=== PATIENT | female | born 1985 | race Caucasian/White ===

== ENCOUNTER 2019-12-04 10:49 | Emergency (ER) | payer BC, MEDICAID ==
[~2019-12-04] VITALS: Ht 162 cm; Wt 55.0 kg
[~2019-12-04 10:49] MED LIST: ACET-168 PO; ACET1TAB43 PO; ACET325T38 PO; B12/1TAB3 PO; B6/F1TAB PO; BENZ56AE TP; CEFD300C PO; CEPH500C PO; CODE-54 PO; DOCU100C37 PO; Docusate Sodium PO; FAMO10TA71 PO; FAMO20TA5 PO; FISH1200 PO; FISH400C PO; FOLI0.4T2 PO; FOLI0.8T PO; FOLI20CA PO; FRS325T PO; GLYB2.5T4 PO; GLYB5TAB6 PO; IBUP-1773 PO; Ibuprofen PO; METR500T PO; NITR-65 PO; OMEG92TA PO; ONDA4TAB11 PO; ONDA8TAB13 PO; ONDA8TAB6 PO; POTA99TA15 PO; PREN1COM PO; PREN1TAB19 PO; primrose oil
--- OUTSIDE RECORDS SUMMARY | 2019-12-04 10:55 | XMS REPORT ---
Author Author First Class EV Conversions perpetual inventory clerk [employer] [facility] [employer] [facility] Address [address] [address] Care Team Providers Care Wet Pour Mixer Name Role Phone NO, LOCAL PHYSICIAN Unavailable Unavailable SABINO DAY S Unavailable GERTRUDE SABINO S Unavailable ABIGAIL ART Unavailable PELAEZ, ADAM Unavailable PELAEZ, ADAM Unavailable PELAEZ, ADAM Unavailable YRIS DEAN Unavailable ADILENE, EARNEST Unavailable ADILENE, EARNEST Unavailable ADILENE, EARNEST D Unavailable Unavailable ELSY, OJ Unavailable ELSY, OJ Unavailable ELSY, OJ Unavailable NOAH Cooney Unavailable Unavailable Unavailable Unavailable Unavailable Allergies The data below is from unstructured sources Allergen Type Severity Reaction Status Last Updated No Known Drug Allergies Active 01/22/14 No Information Medications The data below is from unstructured sources No Known Medications No Known Medications No Known Medications Unknown Medications Unknown Medications No Known Medications No Known Medications No Known Medications No Known Medications No Known Medications No Known Medications No Known Medications No Known Medications No Known Medications No Known Medications No Known Medications No Known Medications No Known Medications No Known Medications No Known Medications No Known Medications No Known Medications Problems Problem Normalized Date Last Normalized Normalized Provider Fa cility Classification Problem(s) Recorded Problem Problem Sta tus Duration Other Body mass Chronic Active [facility] nutritional; index (BMI) 18967 [facility] endocrine; and 45.0-49.9, of [place] metabolic adult [place] ([address]) disorders (12 Translations: sources.) [ - BMI 45.0-49.9, adult Z68.42] Mood disorders Dysthymic Chronic Active EARNEST HEAD Commu nity (12 sources.) disorder 98482 [facility] Translations: of [facility] [ - Dysthymia [place] (00817) F34.1, Dysthymia, Dysthymia] Other Elevated Episodic Active EARNEST [facility] circulatory blood-pressure [id number] [place], [place] [address]e r disease (6 reading, of [place] sources.) without [place] ([address]512) diagnosis of hypertension Translations: [ - Elevated blood pressure reading R03.0] Unclassified Encounter for Episodic Active OJ ELSY C ommunity (4 sources.) screening for [facility] depression of [facility] Translations: [place] ([address]04) [ - Positive depression screening Z13.31] Unclassified Encounter for Episodic Active EARNEST ADILENE Com munity (11 sources.) screening for [facility] lipoid of [facility] disorders [place] ([address]287) Translations: [ - Screening for hyperlipidemia Z13.220] Other Hypoglycemia Chronic Active OJ ELSY Commu nity endocrine Translations: 41571 [facility] disorders (4 [ of [place] sources.) Hypoglycemia] [place] ([address]51) Other Hypoglycemia, Chronic Active OJ ELSY Comm unity endocrine unspecified [facility] disorders (4 Translations: of [place] sources.) [ - [place] (16686) Hypoglycemia E16.2] Other Morbid Chronic Active OJ ELSY Community nutritional; (severe) [facility] endocrine; and obesity due to of [facility] metabolic excess [place] (36837) disorders (8 calories sources.) Translations: [ - Morbid obesity E66.01] Nonspecific Other chest Episodic Active OJ ELSY Comm unity chest pain (4 pain 16407 Health Center sources.) Translations: of [facility] [ - Chest wall [place] (12032) pain R07.89] Malaise and Other fatigue Episodic Active OJ ELSY Co mmunity fatigue (8 Translations: 68259 Health Center sources.) [ - Fatigue, of [place] unspecified [place] ([address]218) type R53.83] Other Pain in right Episodic Active OJ ELSY Comm unity connective foot 07470 Health Center tissue disease Translations: of [facility] (4 sources.) [ - Right foot [place] (41678) pain M79.671] Inflammation; Unspecified Episodic Active OJ CHIN [facility] infection of acute 71198 [facility] eye (except conjunctivitis of [facility] that caused by , right eye [place] (79049) tuberculosis Translations: or sexually [ - Acute transmitteddis bacterial ease) (4 conjunctivitis sources.) of right eye H10.31] Procedures Procedure Normalized Procedure Procedure Result Performer Facility Date 04-27-2018 Assay of thyroid no information no name [facility] (02928) 04-27-2018 Blood count complete no information no name [facility] auto&auto difrntl wbc [facility] (43505) 10-21-2013 Collection venous no information no name [facility] blood venipuncture [facility] (67971) 04-27-2018 Comprehensive no information no name [facility] metabolic panel [facility] (93480) 10-21-2013 Gonadotropin chorionic no information no name [facility] quantitative [facility] (40875) 04-27-2018 Lipid panel no information no name [facility]alth [facility] (92137) 10-24-2013 Us uterus 14 no information [facility] 06[facility]29 [facility] (78791) Immunizations Normalized Immunization Date Notes Care Provider Facili ty Immunization ROCEPHIN 1 GM (IM) 11-26-2017 no information no name [facility] (66307) Results The data below is from unstructured sourcesNo known relevant diagnostic tests, laboratory data and/or discharge summary.No known relevant diagnostic tests, laboratory data and/or discharge summary.No known relevant diagnostic tests, laboratory data and/or discharge summary. No Results No Results No Results No Results No Results No Results No Results No Results No Results No Results No Results No Results No Results No Results No Results No Results No Results No Results Vital Signs Vital Sign Value Interpretation Reference Date Time Care Prov ider Facility (Normalized) (Normalized) Range BMI (Body Mass 45.83 kg/m2 (no code) 15 - 25 kg/m2 04-23-2018 [facility] [place]) 15:00-[address] [place] [address] (00966) BMI (Body Mass 43.08 kg/m2 (no code) 15 - 25 kg/m2 03-05-2018 LI NDA DEAN Community Index) 14:400400 64124 [facility] (10356) Body height 162.56 cm (no code) cm 10-18-2013 [facility] 15:410400 60335 [facility] (02077) Body 98 [degF] (no code) 97.8 - 99.0 04-23-2018 A[facility] Temperature [degF] 15:000400 [address] [place] [address] (35541) Body 97.9 [degF] (no code) 97.8 - 99.0 03-05-2018 YRIS DEAN [facility] Temperature [degF] 14:400400 [address] [place] [address] (80920) Body 99.3 [degF] (no code) 97.8 - 99.0 10-18-2013 OJ [facility] temperature [degF] 15:410400 [address] [place] [address] (65722) Body weight 109.77 kg (no code) kg 10-18-2013 [facility] 15:410400 [address] [place] [address] (97157) Height 162.56 cm (no code) cm 04-23-2018 [facility] mmunity 15:[address] [place] [address] (32057) Height 162.56 cm (no code) cm 03-05-2018 YRIS DEAN Com munity 14:400400 40989 [facility] (76210) Weight 121.11 kg (no code) kg 04-23-2018 EARNEST [employer] [facility]munity 15:000400 [address] [place] [address] (64541) Weight 113.85 kg (no code) kg 03-05-2018 YRIS DEAN Com munity 14:400400 [address] [place] [address] (48478) Interventions No Information Plan of Treatment Normalized Care Care Detail Care Activity Date Care Provider F acility Activity no information no information no information EARNESTDiarize 99613 [facility] (89471) Goals No Information Social History No Information Functional Status The data below is from unstructured sources Query Response Date Trell rded Patient Orientation Person Place Time Situation December 06, 2015 11:28am Mental Status No Information Encounters Encounter Normalized Encounter Encounter Diagnosis Care Provi dion Organization Date Type 04-23-2018 (ESTAB) Establish Care Dizziness and EARNEST ADILENE (n o phone) [facility] [place] - giddiness (no phone) 04-23-2018 - 04-23-2018 07-19-2019 [facility] Pain in right foot PETER GILR EATH (no [facility] phone) CARE (no phone) 06-03-2019 [facility] Unspecified acute PETER GILRE ATH (no [facility] conjunctivitis, right phone) CARE (no phone) eye 04-20-2019 [facility] Hypoglycemia, SHAR BERNOT (no [facility] unspecified phone) CARE (no phone) 03-12-2019 [facility] Other chest pain CHANDRAKANT RAMOS (no [facility] phone) CARE (no phone) 10-03-2018 [facility] Headache PETER DALEYATH (n o [facility] phone) CARE (no phone) 05-11-2019 [facility] [place] Other fatigue EARNEST ADILENE (no phone) [facility] [place] (no phone) 10-04-2018 [facility] [place] Morbid (severe) NAOMI OCHOA (no [facility] [place] obesity due to excess phone) (no phone) calories 05-23-2019 Consultation for Other fatigue EARNEST ADILENE (no phon e) [facility] [place] laboratory medicine (no phone) 04-27-2018 Consultation for Dizziness and EARNEST ADILENE (no phon e) [facility] [place] - laboratory medicine giddiness (no phone) 04-27-2018 - 04-27-2018 04-19-2018 Nursing evaluation of Body mass index (BMI) L [facility]ONEL[facility] DE[facility]no phone[facility] patient and report 45.0-49.9, adult CARE (no phone) 04-19-2018 - 04-19-2018 03-05-2018 Nursing evaluation of Body mass index (BMI) Courtney GIPSON DEAN (no phone) [facility] - patient and report 40.0-44.9, adult CARE (no phone) 03-05-2018 - 03-05-2018 10-15-2017 Patient encounter no information no name no or ganization name 07-19-2019 Patient encounter no information no name no or ganization name procedure 05-23-2019 Patient encounter no information no name no or ganization name procedure 04-20-2019 Patient encounter no information no name no or ganization name procedure 03-12-2019 Patient encounter no information no name no or ganization name procedure 10-04-2018 Patient encounter no information no name no or ganization name procedure 10-03-2018 Patient encounter no information no name no or ganization name procedure Medical Equipment No Information Payers No Information History general Narrative - Reported Note Type Note Facility History general Narrative - Reported Type Medical Gestational Diabetes History Medical Blood pressure check History Surgical No Surgical history informa tion History Hospitaliz Childbirth ation History [facility] ([id number]) Advance Directives Directive Response Recor ded Date/Time Advance Directives No 1:53pm Health Care Power of Patient Consumer Marketer No 06/06/15 1:53pm Organ Donor No 06/06/15 1:53pm Resuscitation Status Full Code 06/06/15 1:53pm Directive Response Recor ded Date/Time Advance Directives No 3:51pm Health Care Power of Patient Consumer Marketer No 10/26/15 3:51pm Organ Donor Yes 10/26/15 3:51pm Resuscitation Status Full Code 10/26/15 3:51pm Directive Response Recor ded Date/Time Advance Directives No 10:59pm Health Care Power of Patient Consumer Marketer No 05/20/15 10:59pm Organ Donor No 05/20/15 10:59pm Resuscitation Status Full Code 05/20/15 10:59pm Directive Response Recor ded Date/Time Advance Directives No 2:57pm Health Care Power of Patient Consumer Marketer No 08/31/15 2:57pm Organ Donor Yes 08/31/15 2:57pm Resuscitation Status Full Code 08/31/15 2:57pm Directive Response Recor ded Date/Time Advance Directives No 9:51am Health Care Power of Patient Consumer Marketer No 12/01/15 9:20am Organ Donor No 12/04/15 9:51am Resuscitation Status Full Code 12/04/15 9:51am Directive Response Recor ded Date/Time Advance Directives No 9:20am Health Care Power of Patient Consumer Marketer No 12/01/15 9:20am Organ Donor Yes 12/01/15 9:20am Resuscitation Status Full Code 12/01/15 9:20am Directive Response Recor ded Date/Time Advance Directives No 9:31pm Health Care Power of Patient Consumer Marketer No 04/25/14 9:31pm Organ Donor Yes 04/25/14 9:31pm Resuscitation Status Full Code 04/25/14 9:31pm Directive Response Recor ded Date/Time Advance Directives No 2:00pm Health Care Power of Patient Consumer Marketer No 05/29/14 2:00pm Organ Donor No 05/29/14 2:00pm Resuscitation Status Full Code 05/29/14 2:00pm Discharge Instructions No hospital discharge instructions.No hospital discharge instructions.No hospital discharge instructions.No hospital discharge instructions. Patient Instructions Physician Instructions New, Converted or Re-Newed RX: RX on Chart Additional Follow Up: Yes Activity: Activity as Tolerated Driving Instructions: No Driving for 1 Week NO SMOKING: NO SMOKING Nothing Inside Vagina: No Douching, No [place], No Tampons Discharge Diet: No Restrictions Symptoms to Report to DrNighat: Bleeding Excessive, Pain Increased, Fever Over 101 Degrees F, Vaginal Bleeding Increase, Questions/Concerns For Any Problems or Questions: Contact Your Physician Bathing Instructions: Shower (x 2 weeks) No hospital discharge instructions.No hospital discharge instructions. Patient Instructions Physician Instructions New, Converted or Re-Newed RX: RX on Chart Additional Follow Up: Yes Orders/Referrals [address] Day Activity: Activity as Tolerated Driving Instructions: No Driving for 1 Week NO SMOKING: NO SMOKING Nothing Inside Vagina: No Douching, No [place], No Tampons Discharge Diet: No Restrictions Return to The Hospital For: anything listed below Symptoms to Report to : Bleeding Excessive, Pain Increased, Fever Over 101 Degrees F, Vaginal Bleeding Increase, Questions/Concerns For Any Problems or Questions: Contact Your Physician Bathing Instructions: Shower Additional Source Comments This clinical document has been generated using [employer] software that has been certified by the Office of the National Coordinator for Health Information Technology (ONC 15.99.04.3023.Diam.31.00.0.354367) and the National Committee for [employer] (NCQA, as an eMeasure certified technology). FOR RECORDS PERTAINING TO PATIENTS WHO ARE OR HAVE BEEN ENROLLED IN A CHEMICAL D EPENDENCY/SUBSTANCE ABUSE PROGRAM, SOME INFORMATION MAY BE OMITTED. This clinica l summary was aggregated from multiple sources. Caution should be exercised in using it in the provision of clinical care. This summary normalizes information from multiple sources, and as a consequence, information in this document may ma terially change the coding, format and clinical context of patient data. In janki tion, data may be omitted in some cases. CLINICAL DECISIONS SHOULD BE BASED ON T HE PRIMARY CLINICAL RECORDS. [employer]. provides no warranty or guara ntee of the accuracy or completeness of information in this document.The followi ng information is based on time limited clinical information UNRECOGNIZED CONTENT PROVIDED BELOW FOR UNRECOGNIZED SECTION MEDICAL (GENERAL) HISTORY Type Description Date Medical History Gestational Diabetes Hospitalization History Childbirth Type Description Date Medical History Gestational Diabetes Surgical History No Surgical history information Hospitalization History Childbirth Type Description Date Medical History Gestational Diabetes Medical History Blood pressure check Surgical History No Surgical history information Hospitalization History Childbirth UNRECOGNIZED CONTENT PROVIDED BELOW FOR UNRECOGNIZED SECTION REASON FOR VISIT vital check--TSowell, MADizziness- Needs to get established per pt, has anxiety and htn- Kaden Aponte RN
--- OUTSIDE RECORDS SUMMARY | 2019-12-04 10:55 | XMS REPORT ---
Author Author Velvet Cooney Organization [facility] Address [address] [place] [address] Care Team Providers Care Graphotype Operator Name Role Phone NOAH Cooney Unavailable PROBLEMS Type Condition ICD9-CM Code ZCS61-TU Code Onset Dates Condition S tatus SNOMED Code Problem Migraine with aura and without status migrainosu s, not intractable G43.109 Active 4987017 Problem Hypoglycemia E16.2 Active 6572653 03 Problem Dysthymia F34.1 Active 76192402 ALLERGIES No Information ENCOUNTERS Encounter Location Date Diagnosis [facility] [address] [place], [place] [id number] [address] [place] [phone] Jun, Right foot pain M79.671 [facility] [place] [id number] [address] [place] [phone] May, Acute bacterial conjunctivit is of right eye H10.[address] [address] Apr, Fatigue, unspecified type R53.[address] [address] 2019 Fatigue, unspecified type R53.83 and Pos itive depression screening Z13.31 [facility] [place] [id number] [address] [place] [phone] Mar, Hypoglycemia E16.2 [facility] [place] [id number] [address] [place] [phone] 14 Feb, 2019 Chest wall pain R07.[address] [address] 08 Sep, 2018 Morbid obesity E66.01 and Migraine with aura and without status migrainosus, not intractable G43.109 [facility] [address] [place] [phone] Sep, Acute nonintractable headach e, unspecified headache type R51 and Morbid obesity E66.01 [place] [address] [address] Mar, Vertigo R42 and Screening for hyperlipid emia Z13.220 [facility] [address] [address] Mar, Vertigo R42 ; Elevated blood pressure re ading R03.0 ; Dysthymia F34.1 ; Screening for hyperlipidemia Z13.220 and BMI 45.0-49.9, adult Z68.42 [facility] [address] [address] Mar, BMI 45.0-49.9, adult Z68.42 [facility] [address] [place] [phone] Feb, BMI 40.0-44.9, adult Z68.41 [facility] [address] [place] [phone] Nov, Community acquired pneumonia , unspecified laterality J18.9 ; BMI 40.0-44.9, adult Z68.41 and Cough R05 [facility] [address] [place] [phone] Nov, Community acquired pneumonia , unspecified laterality J18.9 [facility] [address] [place] [phone] October, Community acquired pneumonia , unspecified laterality J18.9 and BMI 40.0-44.9, adult Z68.41 [facility] [address] [place] [address] Sep, 18 Blood pressure check Z01.30 [facility] [address] [place] [phone] Feb, Acute midline low back pain without scia don M54.5 ; Intractable migraine without status migrainosus, unspecified migraine type G43.919 and Intractable tension-type headache, unspecified chronicity pattern G44.201 [facility] [place] [address] [facility] [id number] [facility] [place] [id number] Nov, Dental examination V72.2 [facility] [address] [address] Nov, [facility] [address] [address] Nov, [facility] [address] [address] Sep, [facility] [address] [address] Sep, [facility] [address] [address] Sep, [facility] [address] [address] Sep, [facility] [address] [address] Sep, [facility] [address] [phone] Sep, [facility] [address] [phone] Sep, [facility] [address] [address] Sep, [facility] [address] [address] Sep, [facility] [address] [address] Sep, IMMUNIZATIONS No Known Immunizations SOCIAL HISTORY Never Assessed REASON FOR VISIT PLAN OF CARE VITAL SIGNS MEDICATIONS No Known Medications RESULTS No Results PROCEDURES Procedure Date Ordered Result Body Site OB US < 14 WKS, SINGLE FETUS October 24, 2013 INSTRUCTIONS MEDICATIONS ADMINISTERED No Known Medications MEDICAL (GENERAL) HISTORY Type Description Date Medical History Gestational Diabetes Medical History Blood pressure check Surgical History No Surgical history information Hospitalization History Childbirth
--- OUTSIDE RECORDS SUMMARY | 2019-12-04 10:56 | XMS REPORT ---
Author Author Velvet HEAD Organization [facility] Address [address] [place] [address] Care Team Providers Care Grave Cleaner Name Role Phone ADILENE EARNEST Unavailable PROBLEMS Type Condition ICD9-CM Code DAQ29-ZQ Code Onset Dates Condition S tatus SNOMED Code Problem Dysthymia F34.1 Active 09530382 ALLERGIES No Known Allergies ENCOUNTERS Encounter Location Date Diagnosis [facility] [address] [address] Mar, Vertigo R42 ; Elevated blood pressure reading R03.0 ; Dysthymia F34.1 ; Screening for hyperlipidemia Z13.220 and BMI 45.0-49.9, adult Z68.42 [facility] [address] [address] Mar, BMI 45.0-49.9, adult Z68.42 [facility] [address] [address] Feb, BMI 40.0-44.9, adult Z68.41 [facility] [address] [place] [id number] [address] [place] [address] Nov, Community acquired pneumonia , unspecified laterality J18.9 ; BMI 40.0-44.9, adult Z68.41 and Cough R05 [facility] [address] [id number] [address] [place] [address] Nov, Community acquired pneumonia , unspecified laterality J18.9 [facility] [address] [id number] [address] [place] [address] October, Community acquired pneumonia , unspecified laterality J18.9 and BMI 40.0-44.9, adult Z68.41 [facility] [address] [place] [address] 19 Sep, Blood pressure check Z01.30 [facility] [address] [facility] [id number] [address] [place] [address] 20 Feb, 2016 Acute midline low back pain without sciatica M54.5 ; Intractable migraine without status migrainosus, unspecified migraine type G43.919 and Intractable tension-type headache, unspecified chronicity pattern G44.201 [facility] [address] [facility] [id number] [place] [id number] 10 Nov, 2014 Dental examination V72.2 [facility] [address] [facility] [id number] [address] [place] [address] Nov, [facility] [address] [facility] [id number] [address] [place] [address] Nov, [facility] [address] [facility] [id number] [address] [place] [address] Sep, [facility] [address] [facility] [id number] [address] [place] [phone] Sep, [facility] [address] [facility] [id number] [address] [place] [address] Sep, [facility] [address] [facility] [id number] [address] [place] [address] Sep, [facility] [address] [facility] [id number] [address] [place] [phone] Sep, [facility] [address] [facility] [id number] [address] [place] [phone] Sep, [facility] [address] [facility] [id number] [address] [place] [phone] Sep, [facility] [address] [facility] [id number] [address] [place] [phone] Sep, [facility] [address] [facility] [id number] [address] [place] [phone] Sep, [facility] [address] [facility] [id number] [address] [place] [address] Sep, IMMUNIZATIONS No Known Immunizations SOCIAL HISTORY Never Assessed REASON FOR VISIT Dizziness- Needs to get established per pt, has anxiety and htn- Kaden Aponte RN PLAN OF CARE Activity Details Follow Up 3 months or as indicated by lab Reason:vertigo VITAL SIGNS Height 64 in 2018-04-23 Weight 267 lbs 2018-04-23 Temperature 98.0 degrees Fahrenheit 2018-04-23 Heart Rate 88 bpm 2018-04-23 Respiratory Rate 18 2018-04-23 BMI 45.83 kg/m2 2018-04-23 Blood pressure systolic 140 mmHg 2018-04-23 Blood pressure diastolic 90 mmHg 2018-04-23 MEDICATIONS No Known Medications RESULTS No Results PROCEDURES No Known procedures INSTRUCTIONS MEDICATIONS ADMINISTERED No Known Medications MEDICAL (GENERAL) HISTORY Type Description Date Medical History Gestational Diabetes Surgical History No Surgical history information Hospitalization History Childbirth
--- OUTSIDE RECORDS SUMMARY | 2019-12-04 10:56 | XMS REPORT ---
Author Author Velvet Cooney Organization [facility] Address [address] [place] [address] Care Team Providers Care Print Shop Helper Name Role Phone NOAH Cooney Unavailable PROBLEMS Type Condition ICD9-CM Code BOH16-DC Code Onset Dates Condition S tatus SNOMED Code Problem Migraine with aura and without status migrainosu s, not intractable G43.109 Active 7443846 Problem Hypoglycemia E16.2 Active 6544154 03 Problem Dysthymia F34.1 Active 07490728 ALLERGIES No Information ENCOUNTERS Encounter Location Date Diagnosis [facility] [address] [place] [address] May, Acute bacterial conjunctivit is of right eye H10.[address] [address] Apr, Fatigue, unspecified type R53.[address] [address] 2019 Fatigue, unspecified type R53.83 and Pos itive depression screening Z13.31 [facility] [place] [id number] [address] [place] [address] Mar, Hypoglycemia E16.2 [facility] [place] [id number] [address] [place] [address] 14 Feb, 2019 Chest wall pain R07.[address] [address] 08 Sep, 2018 Morbid obesity E66.01 and Migraine with aura and without status migrainosus, not intractable G43.109 [facility] IN [address] [address] Sep, Acute nonintractable headach e, unspecified headache type R51 and Morbid obesity E66.01 [facility] [address] [address] Mar, Vertigo R42 and Screening for hyperlipid emia Z13.220 [facility] [address] [address] Mar, Vertigo R42 ; Elevated blood pressure re ading R03.0 ; Dysthymia F34.1 ; Screening for hyperlipidemia Z13.220 and BMI 45.0-49.9, adult Z68.42 [facility] [address] [address] Mar, BMI 45.0-49.9, adult Z68.42 [facility] [address] [place] [id number] [address] [place] [address] Feb, BMI 40.0-44.9, adult Z68.41 [facility] [address] [place] [address] Nov, Community acquired pneumonia , unspecified laterality J18.9 ; BMI 40.0-44.9, adult Z68.41 and Cough R05 [facility] [address] [place] [address] Nov, Community acquired pneumonia , unspecified laterality J18.9 [facility] [address] [place] [address] October, Community acquired pneumonia , unspecified laterality J18.9 and BMI 40.0-44.9, adult Z68.41 [facility] [address] [place] [address] Sep, 18 Blood pressure check Z01.30 [facility] [address] [address] Feb, Acute midline low back pain without scia don M54.5 ; Intractable migraine without status migrainosus, unspecified migraine type G43.919 and Intractable tension-type headache, unspecified chronicity pattern G44.201 [facility] [place] [address] [facility] [id number] [facility] [place] [id number] Nov, Dental examination V72.2 [facility] [address] [place] [id number] [place] [address] Nov, [facility] [address] [address] Nov, [facility] [address] [address] Sep, [facility] [address] [address] Sep, [facility] [address] [address] Sep, [facility] [address] [address] Sep, [facility] [address] [address] Sep, [facility] [address] [address] Sep, [facility] [address] [address] Sep, [facility] [address] [address] Sep, [facility] [address] [address] Sep, [facility] [address] [address] Sep, IMMUNIZATIONS No Known Immunizations SOCIAL HISTORY Never Assessed REASON FOR VISIT PLAN OF CARE VITAL SIGNS Height 64 in 2013-12-12 Weight 243.19 lbs 2013-12-12 Temperature 97.4 degrees Fahrenheit 2013-12-12 Heart Rate 88 bpm 2013-12-12 Respiratory Rate 18 2013-12-12 Blood pressure systolic 112 mmHg 2013-12-12 Blood pressure diastolic 80 mmHg 2013-12-12 MEDICATIONS No Known Medications RESULTS No Results PROCEDURES Procedure Date Ordered Result Body Site URINALYSIS, AUTO, W/O SCOPE December 12, 2013 INSTRUCTIONS MEDICATIONS ADMINISTERED No Known Medications MEDICAL (GENERAL) HISTORY Type Description Date Medical History Gestational Diabetes Medical History Blood pressure check Surgical History No Surgical history information Hospitalization History Childbirth
--- OUTSIDE RECORDS SUMMARY | 2019-12-04 10:56 | XMS REPORT ---
Author Author Velvet PELAEZ [facility] Address [address] [place] [address] Care Team Providers Care Robotic Technician Name Role Phone PELAEZ, ADAM Unavailable PROBLEMS Type Condition ICD9-CM Code QUR30-EU Code Onset Dates Condition S tatus SNOMED Code Problem Blood pressure check Z01.30 Active 464990198 Problem Elevated blood pressure reading without diagnosi s of hypertension 796.2 Active 611168189 ALLERGIES No Known Allergies ENCOUNTERS Encounter Location Date Diagnosis [facility] [address] [id number] [place] [address] Nov, Community acquired pneumonia , unspecified laterality J18.9 ; BMI 40.0-44.9, adult Z68.41 and Cough R05 [facility] [address] [id number] [place], [place] [address] Nov, Community acquired pneumonia , unspecified laterality J18.9 [facility] [address] [id number] [place] [address] October, Community acquired pneumonia , unspecified laterality J18.9 and BMI 40.0-44.9, adult Z68.41 [facility] [address] [place] [address] Sep, 18 Blood pressure check Z01.30 [facility] [address] [facility] [id number] [address] [address] 20 Feb, 2016 Acute midline low back pain without sciatica M54.5 ; Intractable migraine without status migrainosus, unspecified migraine type G43.919 and Intractable tension-type headache, unspecified chronicity pattern G44.201 [facility] [address] [id number] [id number] Nov, Dental examination V72.2 [facility] [address] [id number] [address] [place] [address] Nov, [facility] [address] [id number] [address] [place] [address] Nov, [facility] [address] [id number] [address] [place] [phone] Sep, [facility] [address] [id number] [address] [place] [address] Sep, [facility] [address] [id number] [address] [place] [address] Sep, [facility] [address] [id number] [address] [place] [address] Sep, [facility] [address] [id number] [address] [place] [address] Sep, [facility] [address] [id number] [address] [place] [address] Sep, [facility] [address] [id number] [address] [place] [address] Sep, [facility] [address] [id number] [address] [place] [address] Sep, [facility] [address] [id number] [address] [place] [address] Sep, [facility] [address] [id number] [address] [place] [address] Sep, IMMUNIZATIONS No Known Immunizations SOCIAL HISTORY Never Assessed REASON FOR VISIT Congestion ISAC [place] PLAN OF CARE Activity Details Follow Up prn Reason: VITAL SIGNS Height 64 in 2017-11-28 Weight 247.3 lbs 2017-11-28 Temperature 97.9 degrees Fahrenheit 2017-11-28 Heart Rate 97 bpm 2017-11-28 Respiratory Rate 18 2017-11-28 Oximetry 98 % 2017-11-28 BMI 42.44 kg/m2 2017-11-28 Blood pressure systolic 122 mmHg 2017-11-28 Blood pressure diastolic 64 mmHg 2017-11-28 MEDICATIONS Medication Instructions Dosage Frequency Start Date End Date Duration S tatus Ibuprofen 800 MG Orally Three times a day 1 tablet with food or milk as needed 8h Active Tessalon Perles 100 mg Orally Three times a day 1 capsule as needed 8h Nov, Nov, 05 days Active Azithromycin 250 MG Orally Once a day 2 tablets on the fi rst day, then 1 tablet daily for 4 days 24h October, Nov, Active Zyrtec Allergy 10 mg Orally Once a day 1 tablet 24h Nov, 8 Dec, 30 day(s) Active ProAir HFA 108 (90 Base) MCG/ACT Inhalation every 4-6 hrs 2 puffs a s needed October, Active PredniSONE 20 mg Orally Once a day 1 tablet 24h October, Nov, Active Cefdinir 300 MG Orally every 12 hrs 1 capsule 12h October, 10 2017 Active RESULTS No Results PROCEDURES No Known procedures INSTRUCTIONS MEDICATIONS ADMINISTERED No Known Medications MEDICAL (GENERAL) HISTORY Type Description Date Medical History Gestational Diabetes Hospitalization History Childbirth
--- OUTSIDE RECORDS SUMMARY | 2019-12-04 10:56 | XMS REPORT ---
Author Author Velvet PELAEZ [facility] Address [address] [place] [address] Care Team Providers Care Airplane And Engine Inspector Name Role Phone LATANYA ADAM Unavailable PROBLEMS Type Condition ICD9-CM Code WAW96-UC Code Onset Dates Condition S tatus SNOMED Code Problem Blood pressure check Z01.30 Active 774535877 Problem Elevated blood pressure reading without diagnosi s of hypertension 796.2 Active 150248249 ALLERGIES No Information ENCOUNTERS Encounter Location Date Diagnosis [facility] [address] [id number] [address], [place] [address] Nov, Community acquired pneumonia , unspecified laterality J18.9 ; BMI 40.0-44.9, adult Z68.41 and Cough R05 [facility] [address] [id number] [address], [place] [address] Nov, Community acquired pneumonia , unspecified laterality J18.9 [facility] [address] [id number] [place], [place] [address] October, Community acquired pneumonia , unspecified laterality J18.9 and BMI 40.0-44.9, adult Z68.41 [facility] [address] [place] [address] Sep, 18 Blood pressure check Z01.30 [facility] [address] [facility] [id number] [address] [place] [address] 20 Feb, 2016 Acute midline low back pain without sciatica M54.5 ; Intractable migraine without status migrainosus, unspecified migraine type G43.919 and Intractable tension-type headache, unspecified chronicity pattern G44.201 [facility] [address] [facility] [id number] [id number] Nov, Dental examination V72.2 [facility] [address] [id number] [address] [place] [address] Nov, [facility] [address] [id number] [address] [place] [address] Nov, [facility] [address] [id number] [address] [place] [address] Sep, [facility] [address] [id number] [address] [place] [address] Sep, [facility] [address] [id number] [address] [place] [address] Sep, [facility] [address] [id number] [address] [place] [address] Sep, [facility] [address] [id number] [address] [place] [address] Sep, [facility] [address] [id number] [address] [place] [address] Sep, [facility] [address] [id number] [address] [place] [address] Sep, [facility] [address] [id number] [address] [place] [phone] Sep, [facility] [address] [id number] [address] [place] [address] Sep, [facility] [address] [id number] [address] [place] [phone] Sep, IMMUNIZATIONS No Known Immunizations SOCIAL HISTORY Never Assessed REASON FOR VISIT xray PLAN OF CARE VITAL SIGNS MEDICATIONS No Known Medications RESULTS Name Result Date Reference Range Xray : Chest 2 View (IN HOUSE) 2017-11-27 PROCEDURES Procedure Date Ordered Result Body Site X-RAY EXAM CHEST 2 VIEWS November 27, 2017 INSTRUCTIONS MEDICATIONS ADMINISTERED No Known Medications MEDICAL (GENERAL) HISTORY Type Description Date Medical History Gestational Diabetes Hospitalization History Childbirth
--- OUTSIDE RECORDS SUMMARY | 2019-12-04 10:56 | XMS REPORT ---
Author Author Velvet MENDOZA Organization [employer] Address Unknown Phone Unavailable Care Team Providers Care Shingle Carrier Name Role Phone KELLY MENDOZA CP Unavailable Allergies, Adverse Reactions, Alerts Substance Reaction Event Type N.K.D.A. Info Not Available Non Drug Allergy Problems Problem Type Condition Code Onset Dates Condition Statu s Problem examination or test, positive result V72.42 Active Problem Elevated blood pressure reading without diagnosi s of hypertension 796.2 Active Problem Other specified symptom associated with female genital organs 625.8 Active Assessment Intractable tension-type headache, unspe cified chronicity pattern G44.201 Active Assessment Acute midline low back pain without sciatica M54.5 Active Assessment Intractable migraine without status migrainosus, unspecified migraine type G43.919 Active Medications Medication Code System Code Instructions Start Date End Date Status Dosage Imitrex [facility] [id number] 100 MG Orally On ce a day as needed and may repeat in 2 hours if needed Mar 18, 2016 1 tablet Procedures Procedure Coding System Code Date Office Visit, Est Pt., Level 3 CPT-4 06231 S ept 2015 Vital Signs Date/Time: Mar 18, 2016 Cardiac Monitoring Heart Rate 86 bpm Weight 262 lbs Height 64 in BMI 44.97 Index Blood Pressure Diastolic 82 mmHg Blood Pressure Systolic 114 mmHg Results No Known Results Summary Purpose [employer] Submission
--- OUTSIDE RECORDS SUMMARY | 2019-12-04 10:56 | XMS REPORT ---
Author Author Velvet ART [facility] [address] Address [address] [place] [address] Care Team Providers Care Biological Inspector Name Role Phone RUBENSABIGAIL Unavailable PROBLEMS Type Condition ICD9-CM Code TJB45-UD Code Onset Dates Condition S tatus SNOMED Code Problem Blood pressure check Z01.30 Active 416323298 Problem Elevated blood pressure reading without diagnosi s of hypertension 796.2 Active 641522447 ALLERGIES No Information ENCOUNTERS Encounter Location Date Diagnosis [facility] [address] [id number] [place] [address] 02 Nov, 2017 Community acquired pneumonia , unspecified laterality J18.9 ; BMI 40.0-44.9, adult Z68.41 and Cough R05 [facility] [address] [id number] [place] [address] Nov, Community acquired pneumonia , unspecified laterality J18.9 [facility] [address] [id number] [place] [address] October, Community acquired pneumonia , unspecified laterality J18.9 and BMI 40.0-44.9, adult Z68.41 [facility] [address] [place] [address] Sep, Blood pressure check Z01.30 [facility] [address] [facility] [id number] [address] [place] [address] 20 Feb, 2016 Acute midline low back pain without sciatica M54.5 ; Intractable migraine without status migrainosus, unspecified migraine type G43.919 and Intractable tension-type headache, unspecified chronicity pattern G44.201 [facility] [address] [id number] [id number] Nov, Dental examination V72.2 [facility] [address] [id number] [address] [place] [address] Nov, [facility] [address] [id number] [address] [place] [address] Nov, [facility] [address] [id number] [address] [place] [address] Sep, [facility] [address] [id number] [address] [place] [address] Sep, [facility] [address] [id number] [address] [place] [address] Sep, [facility] [address] [id number] [address] [place] [address] Sep, [facility] [address] [id number] [address] [place] [address] Sep, [facility] [address] [id number] [address] [place] [address] Sep, [facility] [address] [id number] [address] [place] [address] Sep, [facility] [address] [id number] [address] [place] [address] Sep, [facility] [address] [id number] [address] [place] [address] Sep, [facility] [address] [id number] [address] [place] [address] Sep, IMMUNIZATIONS No Known Immunizations SOCIAL HISTORY Never Assessed REASON FOR VISIT [facility] VITAL SIGNS Height 64 in 2017-10-15 Weight 255.9 lbs 2017-10-15 Temperature 98.4 degrees Fahrenheit 2017-10-15 Heart Rate 99 bpm 2017-10-15 Respiratory Rate 18 2017-10-15 BMI 43.92 kg/m2 2017-10-15 Blood pressure systolic 124 mmHg 2017-10-15 Blood pressure diastolic 64 mmHg 2017-10-15 MEDICATIONS Medication Instructions Dosage Frequency Start Date End Date Duration S katy Imitrex 100 MG Orally Once a day as needed and may repe at in 2 hours if needed 1 tablet Feb, Active Amoxicillin 500 MG Orally every 8 hrs 1 tablet 8h Not-Taking RESULTS No Results PROCEDURES No Known procedures INSTRUCTIONS MEDICATIONS ADMINISTERED No Known Medications MEDICAL (GENERAL) HISTORY Type Description Date Medical History Gestational Diabetes Hospitalization History Childbirth
--- OUTSIDE RECORDS SUMMARY | 2019-12-04 10:56 | XMS REPORT ---
Author Author Velvet CHIN Organization [facility] Address [address] [place] [address] Care Team Providers Care Metal Hanging Supervisor Name Role Phone ELSY OJ Unavailable PROBLEMS Type Condition ICD9-CM Code USN18-UH Code Onset Dates Condition S tatus SNOMED Code Problem Migraine with aura and without status migrainosu s, not intractable G43.109 Active 3040581 Problem Hypoglycemia E16.2 Active 7092754 03 Problem Dysthymia F34.1 Active 95716338 ALLERGIES No Information ENCOUNTERS Encounter Location Date Diagnosis [facility] WALK IN [place] [id number] [place] [address] Jun, Right foot pain M79.671 [facility] WALK IN [place] [id number] [address] [place] [address] 06 May, 2019 Acute bacterial conjunctivit is of right eye H10.[address] [address] Apr, Fatigue, unspecified type R53.[address] [address] 2019 Fatigue, unspecified type R53.83 and Pos itive depression screening Z13.31 [facility] WALK IN [place] [id number] [address] [place] [address] Mar, Hypoglycemia E16.2 [facility] WALK IN [place] [id number] [address] [place] [address] 14 Feb, 2019 Chest wall pain R07.[address] [address] 08 Sep, 2018 Morbid obesity E66.01 and Migraine with aura and without status migrainosus, not intractable G43.109 [facility] WALK IN [facility] [address] [place] [address] Sep, Acute nonintractable headach e, unspecified headache type R51 and Morbid obesity E66.[address] [address] Mar, Vertigo R42 and Screening for hyperlipid emia Z13.220 [place] [address] [address] Mar, Vertigo R42 ; Elevated blood pressure re ading R03.0 ; Dysthymia F34.1 ; Screening for hyperlipidemia Z13.220 and BMI 45.0-49.9, adult Z68.42 [facility] WALK IN [address] [address] Mar, BMI 45.0-49.9, adult Z68.42 [facility] IN [address] [address] Feb, BMI 40.0-44.9, adult Z68.41 [facility] [address] [place] [address] Nov, Community acquired pneumonia , unspecified laterality J18.9 ; BMI 40.0-44.9, adult Z68.41 and Cough R05 [facility] [address] [place] [address] Nov, Community acquired pneumonia , unspecified laterality J18.9 [facility] [address] [place] [address] October, Community acquired pneumonia , unspecified laterality J18.9 and BMI 40.0-44.9, adult Z68.41 [facility] [place] [address] [place] [address] Sep, 18 Blood pressure check Z01.30 [facility] [address] [place] [address] Feb, Acute midline low back pain without scia don M54.5 ; Intractable migraine without status migrainosus, unspecified migraine type G43.919 and Intractable tension-type headache, unspecified chronicity pattern G44.201 [facility] [place] [address] [facility] [id number] [facility] [place] [id number] Nov, Dental examination V72.2 [facility] [address] [address] Nov, [facility] [address] [address] Nov, [facility] [address] [address] Sep, [facility] [address] [address] Sep, [facility] [address] [address] Sep, [facility] [address] [address] Sep, [facility] [address] [address] Sep, [facility] [address] [address] Sep, [facility] [address] [address] Sep, [facility] [address] [address] Sep, [facility] [address] [address] Sep, [facility] [address] [address] Sep, IMMUNIZATIONS No Known Immunizations SOCIAL HISTORY [...]
--- OUTSIDE RECORDS SUMMARY | 2019-12-04 10:56 | XMS REPORT ---
Author Author Velvet CHIN Organization [facility] Address [address] [place] [address] Care Team Providers Care Assistant Professor Of Economics Name Role Phone ELSY OJ Unavailable PROBLEMS Type Condition ICD9-CM Code [id number] Code Onset Dates Condition S tatus SNOMED Code Problem Migraine with aura and without status migrainosu s, not intractable G43.109 Active 3291591 Problem Hypoglycemia E16.2 Active 0682243 03 Problem Dysthymia F34.1 Active 94078075 ALLERGIES No Information ENCOUNTERS Encounter Location Date Diagnosis [facility] WALK IN [place] [id number] [place] [address] Jun, Right foot pain M79.671 [facility] WALK IN [place] [id number] [place] [address] May, Acute bacterial conjunctivit is of right eye H10.[address] [address] Apr, Fatigue, unspecified type R53.[address] [address] 2019 Fatigue, unspecified type R53.83 and Pos itive depression screening Z13.31 [facility] WALK IN [place] [id number] [place] [address] Mar, Hypoglycemia E16.2 [facility] WALK IN [place] [id number] [place] [address] 14 Feb, 2019 Chest wall pain R07.[address] [address] 08 Sep, 2018 Morbid obesity E66.01 and Migraine with aura and without status migrainosus, not intractable G43.109 [facility] WALK IN [facility] [address] [place] [address] Sep, Acute nonintractable headach e, unspecified headache type R51 and Morbid obesity E66.[address] [address] Mar, Vertigo R42 and Screening for hyperlipid emia Z13.220 [place] [address] [address] Mar, Vertigo R42 ; Elevated blood pressure re ading R03.0 ; Dysthymia F34.1 ; Screening for hyperlipidemia Z13.220 and BMI 45.0-49.9, adult Z68.42 [facility] WALK IN [address] [address] Mar, BMI 45.0-49.9, adult Z68.42 [facility] IN [address] [address] Feb, BMI 40.0-44.9, adult Z68.41 [facility] [address] [place] [address] Nov, Community acquired pneumonia , unspecified laterality J18.9 ; BMI 40.0-44.9, adult Z68.41 and Cough R05 [facility] [address] [place] [address] Nov, Community acquired pneumonia , unspecified laterality J18.9 [facility] [address] [place] [address] October, Community acquired pneumonia , unspecified laterality J18.9 and BMI 40.0-44.9, adult Z68.41 [facility] [place] [address] [place] [address] Sep, [address]30 [facility] [address] [place] [address] Feb, Acute midline low back pain without scia don M54.5 ; Intractable migraine without status migrainosus, unspecified migraine type G43.919 and Intractable tension-type headache, unspecified chronicity pattern G44.201 [facility] [place] [address] [facility] [id number] [id number] Nov, Dental examination V72.2 [facility] [address] [place] [id number] [place] [address] Nov, [facility] [address] [address] Nov, [facility] [address] [address] Sep, [facility] [address] [address] Sep, [facility] [address] [address] Sep, [facility] [address] [address] Sep, [facility] [address] [address] Sep, [facility] [address] [address] Sep, [facility] [address] [address] Sep, [facility] [address] [address] Sep, [facility] [address] [address] Sep, [facility] [address] [address] Sep, IMMUNIZATIONS No Known Immunizations SOCIAL HISTORY Never Assessed REASON FOR VISIT PLAN OF CARE VITAL SIGNS Height 64 in 2013-10-18 Weight 242 lbs 2013-10-18 Temperature 99.3 degrees Fahrenheit 2013-10-18 Heart Rate 86 bpm 2013-10-18 Respiratory Rate 18 2013-10-18 Blood pressure systolic 136 mmHg 2013-10-18 Blood pressure diastolic 90 mmHg 2013-10-18 MEDICATIONS No Known Medications RESULTS No Results PROCEDURES No Known procedures INSTRUCTIONS MEDICATIONS ADMINISTERED No Known Medications MEDICAL (GENERAL) HISTORY Type Description Date Medical History Gestational Diabetes Medical History Blood pressure check Surgical History No Surgical history information Hospitalization History Childbirth
--- OUTSIDE RECORDS SUMMARY | 2019-12-04 10:56 | XMS REPORT ---
Author Author Velvet CHIN Organization [facility] Address [address] [place] [address] Care Team Providers Care Personal Care Assistant Name Role Phone ELSY OJ Unavailable PROBLEMS Type Condition ICD9-CM Code NFR95-SQ Code Onset Dates Condition S tatus SNOMED Code Problem Migraine with aura and without status migrainosu s, not intractable G43.109 Active 3744874 Problem Hypoglycemia E16.2 Active 0190752 03 Problem Dysthymia F34.1 Active 05113709 ALLERGIES No Information ENCOUNTERS Encounter Location Date Diagnosis [facility] WALK IN [place] [id number] [place] [address] Jun, Right foot pain M79.671 [facility] WALK IN [place] [id number] [place] [address] May, Acute bacterial conjunctivit is of right eye H10.[address] [address] Apr, Fatigue, unspecified type R53.[address] [address] 2019 Fatigue, unspecified type R53.83 and Pos itive depression screening Z13.31 [facility] WALK IN [place] [id number] [place] [address] Mar, Hypoglycemia E16.2 [facility] WALK IN [place] [id number] [place] [address] 14 Feb, 2019 Chest wall pain R07.[address] [address] 08 Sep, 2018 Morbid obesity E66.01 and Migraine with aura and without status migrainosus, not intractable G43.109 [facility] WALK IN [facility] [address] [place] [address] Sep, Acute nonintractable headach e, unspecified headache type R51 and Morbid obesity E66.[address] [address] Mar, Vertigo R42 and Screening for hyperlipid emia Z13.220 [place] [address] [address] Mar, Vertigo R42 ; Elevated blood pressure re ading R03.0 ; Dysthymia F34.1 ; Screening for hyperlipidemia Z13.220 and BMI 45.0-49.9, adult Z68.42 [facility] WALK IN [address] [address] Mar, BMI 45.0-49.9, adult Z68.42 [facility] IN [address] [address] Feb, BMI 40.0-44.9, adult Z68.41 [facility] [address] [place] [address] Nov, Community acquired pneumonia , unspecified laterality J18.9 ; BMI 40.0-44.9, adult Z68.41 and Cough R05 [facility] [address] [place] [address] Nov, Community acquired pneumonia , unspecified laterality J18.9 [facility] [address] [place] [address] October, Community acquired pneumonia , unspecified laterality J18.9 and BMI 40.0-44.9, adult Z68.41 [facility] [place] [address] [place] [address] Sep, 18 Blood pressure check Z01.30 [facility] [address] [place] [address] Feb, Acute midline low back pain without scia don M54.5 ; Intractable migraine without status migrainosus, unspecified migraine type G43.919 and Intractable tension-type headache, unspecified chronicity pattern G44.201 [facility] [place] [address] [facility] [id number] [facility] [place] [id number] Nov, Dental examination V72.2 [facility] [address] [address] Nov, [facility] [address] [address] Nov, [facility] [address] [address] Sep, [facility] [address] [address] Sep, [facility] [address] [address] Sep, [facility] [address] [address] Sep, [facility] [address] [address] Sep, [facility] [address] [address] Sep, [facility] [address] [address] Sep, [facility] [address] [address] Sep, [facility] [address] [address] Sep, [facility] [address] [address] Sep, IMMUNIZATIONS No Known Immunizations SOCIAL HISTORY Never Assessed REASON FOR VISIT PLAN OF CARE VITAL SIGNS MEDICATIONS No Known Medications RESULTS No Results PROCEDURES Procedure Date Ordered Result Body Site CHORIONIC GONADOTROPIN TEST October 21, 2013 VENIPUNCT, ROUTINE* October 21, 2013 INSTRUCTIONS MEDICATIONS ADMINISTERED No Known Medications MEDICAL (GENERAL) HISTORY Type Description Date Medical History Gestational Diabetes Medical History Blood pressure check Surgical History No Surgical history information Hospitalization History Childbirth
--- OUTSIDE RECORDS SUMMARY | 2019-12-04 10:56 | XMS REPORT ---
Author Author Velvet DEAN [facility] Address [address] [place] [address] Care Team Providers Care Cable Rigger Name Role Phone YRIS DEAN Unavailable PROBLEMS Type Condition ICD9-CM Code AOT21-PE Code Onset Dates Condition S tatus SNOMED Code Problem Blood pressure check Z01.30 Active 135152076 Problem Elevated blood pressure reading without diagnosi s of hypertension 796.2 Active 535092783 ALLERGIES No Information ENCOUNTERS Encounter Location Date Diagnosis [facility] IN [facility] [address] [facility] [id number] [address] [place] [address] 07 Feb, 2018 BMI 40.0-44.9, adult Z68.41 [facility] [address] [place] [address] [place] [address] 02 Nov, 2017 Community acquired pneumonia , unspecified laterality J18.9 ; BMI 40.0-44.9, adult Z68.41 and Cough R05 [facility] [address] [id number] [address] [place] [address] Nov, Community acquired pneumonia , unspecified laterality J18.9 [facility] [address] [id number] [address] [place] [address] October, Community acquired pneumonia , unspecified laterality J18.9 and BMI 40.0-44.9, adult Z68.41 [facility] [place] [address] [place] [address] Sep, 18 Blood pressure check Z01.30 [facility] [address] [facility] [id number] [address] [place] [address] 20 Feb, 2016 Acute midline low back pain without sciatica M54.5 ; Intractable migraine without status migrainosus, unspecified migraine type G43.919 and Intractable tension-type headache, unspecified chronicity pattern G44.201 [facility] [place] [id number] [place] [id number] Nov, Dental examination V72.2 [facility] [address] [id number] [address] [place] [address] Nov, [facility] [address] [id number] [address] [place] [address] Nov, [facility] [address] [id number] [address] [place] [address] Sep, [facility] [address] [facility] [id number] [address] [place] [address] Sep, [facility] [address] [facility] [id number] [address] [place] [address] Sep, [facility] [address] [facility] [id number] [address] [place] [address] Sep, [facility] [address] [facility] [id number] [address] [place] [address] Sep, [facility] [address] [facility] [id number] [address] [place] [address] Sep, [facility] [address] [facility] [id number] [address] [place] [address] Sep, [facility] [address] [facility] [id number] [address] [place] [address] Sep, [facility] [address] [facility] [id number] [address] [place] [address] Sep, [facility] [address] [facility] [id number] [address] [place] [address] Sep, IMMUNIZATIONS No Known Immunizations SOCIAL HISTORY Never Assessed REASON FOR VISIT vital check--GE Wong PLAN OF CARE VITAL SIGNS Height 64 in 2018-03-05 Weight 251 lbs 2018-03-05 Temperature 97.9 degrees Fahrenheit 2018-03-05 Heart Rate 86 bpm 2018-03-05 Respiratory Rate 20 2018-03-05 BMI 43.08 kg/m2 2018-03-05 Blood pressure systolic 104 mmHg 2018-03-05 Blood pressure diastolic 82 mmHg 2018-03-05 MEDICATIONS Medication Instructions Dosage Frequency Start Date End Date Duration S tatus Ibuprofen 800 MG Orally Three times a day 1 tablet with food or milk as needed 8h Not-Taking ProAir HFA 108 (90 Base) MCG/ACT Inhalation every 4-6 hrs 2 puffs a s needed October, Not-Taking RESULTS No Results PROCEDURES No Known procedures INSTRUCTIONS MEDICATIONS ADMINISTERED No Known Medications MEDICAL (GENERAL) HISTORY Type Description Date Medical History Gestational Diabetes Hospitalization History Childbirth
--- OUTSIDE RECORDS SUMMARY | 2019-12-04 10:56 | XMS REPORT ---
Author Author Velvet HEAD Organization [facility] Address [address] [place] [address] Care Team Providers Care Forger Helper Name Role Phone ADILENE EARNEST Unavailable PROBLEMS Type Condition ICD9-CM Code MWK71-SF Code Onset Dates Condition S tatus SNOMED Code Problem Dysthymia F34.1 Active 12574983 ALLERGIES No Information ENCOUNTERS Encounter Location Date Diagnosis [facility] [address] [address] Mar, Vertigo R42 and Screening fo r hyperlipidemia Z13.220 [facility] [address] [address] Mar, Vertigo R42 ; Elevated blood pressure reading R03.0 ; Dysthymia F34.1 ; Screening for hyperlipidemia Z13.220 and BMI 45.0-49.9, adult Z68.42 [facility] IN [facility] [address] [address] Mar, BMI 45.0-49.9, adult Z68.42 [facility] IN [facility] [address] [address] Feb, BMI 40.0-44.9, adult Z68.41 [facility] [address] [email or web address][id number] [place] [address] Nov, Community acquired pneumonia , unspecified laterality J18.9 ; BMI 40.0-44.9, adult Z68.41 and Cough R05 [facility] [address] [id number] [place] [address] Nov, Community acquired pneumonia , unspecified laterality J18.9 [facility] [address] [id number] [address] [address] October, Community acquired pneumonia , unspecified laterality J18.9 and BMI 40.0-44.9, adult Z68.41 [facility] [address] [place] [address] Sep, Blood pressure check Z01.30 [facility] [address] [facility] [id number] [address] [place] [address] Feb, Acute midline low back pain without sciatica M54.5 ; Intractable migraine without status migrainosus, unspecified migraine type G43.919 and Intractable tension-type headache, unspecified chronicity pattern G44.201 [facility] [address] [facility] [id number] [id number] Nov, Dental examination V72.2 [facility] [address] [facility] [id number] [address] [place] [address] Nov, [facility] [address] [place] [id number] [address] [place] [address] Nov, [facility] [address] [facility] [id number] [address] [place] [address] Sep, [facility] [address] [facility] [id number] [address] [place] [address] Sep, [facility] [address] [facility] [id number] [address] [place] [address] Sep, [facility] [address] [facility] [id number] [address] [place] [address] Sep, [facility] [address] [facility] [id number] [address] [place] [address] Sep, [facility] [address] [facility] [id number] [address] [place] [address] Sep, [facility] [address] [facility] [id number] [address] [place] [address] Sep, [facility] [address] [facility] [id number] [address] [place] [address] Sep, [facility] [address] [facility] [id number] [address] [place] [address] Sep, [facility] [address] [facility] [id number] [address] [place] [address] Sep, IMMUNIZATIONS No Known Immunizations SOCIAL HISTORY Never Assessed REASON FOR VISIT PLAN OF CARE Activity Details Pending Test LIPID PANEL Pending Test CMP Pending Test CBC Pending Test TSH VITAL SIGNS MEDICATIONS Unknown Medications RESULTS No Results PROCEDURES Procedure Date Ordered Result Body Site LIPID PANEL Apr 27, 2018 COMPREHEN METABOLIC PANEL Apr 27, 2018 ASSAY THYROID STIM HORMONE Apr 27, 2018 COMPLETE CBC W/AUTO DIFF WBC Apr 27, 2018 INSTRUCTIONS MEDICATIONS ADMINISTERED No Known Medications MEDICAL (GENERAL) HISTORY Type Description Date Medical History Gestational Diabetes Medical History Blood pressure check Surgical History No Surgical history information Hospitalization History Childbirth
--- OUTSIDE RECORDS SUMMARY | 2019-12-04 10:56 | XMS REPORT ---
Author Author Velvet PELAEZ [facility] Address [address] [place] [address] Care Team Providers Care Certified Adapted Physical Educator Name Role Phone PELAEZ, ADAM Unavailable PROBLEMS Type Condition ICD9-CM Code [id number] Code Onset Dates Condition S tatus SNOMED Code Problem Blood pressure check Z01.30 Active 386487809 Problem Elevated blood pressure reading without diagnosi s of hypertension 796.2 Active [id number] ALLERGIES No Known Allergies ENCOUNTERS Encounter Location Date Diagnosis [facility] [address] [id number] [address], [place] [address] Nov, Community acquired pneumonia , unspecified laterality J18.9 ; BMI 40.0-44.9, adult Z68.41 and Cough R05 [facility] [address] [id number] [address], [place] [address] Nov, Community acquired pneumonia , unspecified laterality J18.9 [facility] [address] [id number] [address], [place] [address] October, Community acquired pneumonia , unspecified laterality J18.9 and BMI 40.0-44.9, adult Z68.41 [facility] [address] [place] [address] Sep, 18 Blood pressure check Z01.30 [facility] [place] [address] [facility] [address] [facility] [id number] [place] [address] 20 Feb, 2016 Acute midline low back pain without sciatica M54.5 ; Intractable migraine without status migrainosus, unspecified migraine type G43.919 and Intractable tension-type headache, unspecified chronicity pattern G44.201 [facility] [address] [id number] [id number] Nov, Dental examination V72.2 [facility] [place] [address] [id number] [address] [place] [id number] Nov, [facility] [place] [address] [id number] [address] [place] [phone] Nov, [facility] [place] [address] [id number] [address] [place] [phone] Sep, [facility] [place] [address] [id number] [address] [place] [phone] Sep, [facility] [place] [address] [id number] [address] [place] [phone] Sep, [facility] [place] [address] [id number] [address] [place] [phone] Sep, [facility] [place] [address] [id number] [address] [place] [phone] Sep, [facility] [place] [address] [id number] [address] [place] [phone] Sep, [facility] [place] [address] [id number] [address] [place] [phone] Sep, [facility] [place] [address] [id number] [address] [place] [phone] Sep, [facility] [place] [address] [id number] [address] [place] [phone] Sep, [facility] [place] [address] [id number] [address] [place] [phone] Sep, IMMUNIZATIONS Vaccine Route Administration Date Status ROCEPHIN 1 GM (IM) IM Intramuscular November 26, 2017 Administered SOCIAL HISTORY Never Assessed REASON FOR VISIT Congestion ISAC Belle, Coughing up green sputum PLAN OF CARE Activity Details Follow Up 2 to 4 days, prn Reason:pneu monia VITAL SIGNS Height 64 in 2017-11-26 Weight 247.4 lbs 2017-11-26 Temperature 102.1 degrees Fahrenheit 2017-11-26 Heart Rate 112 bpm 2017-11-26 Respiratory Rate 18 2017-11-26 Oximetry 98 % 2017-11-26 BMI 42.46 kg/m2 2017-11-26 Blood pressure systolic 122 mmHg 2017-11-26 Blood pressure diastolic 82 mmHg 2017-11-26 MEDICATIONS Medication Instructions Dosage Frequency Start Date End Date Duration S tatus Ibuprofen 800 MG Orally Three times a day 1 tablet with food or milk as needed 8h Active Azithromycin 250 MG Orally Once a day 2 tablets on the fi rst day, then 1 tablet daily for 4 days 24h October, Nov, 5 day(s) Active Cefdinir 300 MG Orally every 12 hrs 1 capsule 12h October, 1 0 Nov, 2017 10 day(s) Active PredniSONE 20 mg Orally Once a day 1 tablet 24h October, 5 Nov, 2017 05 days Active ProAir HFA 108 (90 Base) MCG/ACT Inhalation every 4-6 hrs 2 puffs a s needed October, 30 days Active RESULTS No Results PROCEDURES Procedure Date Ordered Result Body Site ROCEPHIN 1 GM (IM) November 26, 2017 THER/PROPH/DIAG INJ, SC/IM November 26, 2017 INSTRUCTIONS MEDICATIONS ADMINISTERED No Known Medications MEDICAL (GENERAL) HISTORY Type Description Date Medical History Gestational Diabetes Hospitalization History Childbirth
--- OUTSIDE RECORDS SUMMARY | 2019-12-04 10:57 | XMS REPORT | Continuity of Care Document ---
Author Organization Unknown Address Unknown Phone Unavailable Allergies Active Description Code Type Severity Reaction Onset Reported/Identified Relationship to Patient Clinical Status Yes No Known Drug Allergies [id number] Drug Allergy Unknown N/A 01/22/2014 Medications Medication Packaging Start Date St op Date Route Dosage Sig VENTOLIN HFA Inhalation 11 four ti mes each day PREDNISONE 10/17 Oral 55 once eac h day CEFTIN 5 ORAL 2020 twice da chinyere ALBUTEROL 2014 11 QID PRN OMEPRAZOLE 11/01 Oral 3030 once eac h day CARAFATE 015 ORAL 4040 4 times a day Problems Date Dx Coded Attending Type Code Diagnosis Diagnosed By 10/18/2013 OJ CHIN MD 796 .2 ELEVATED BLOOD PRESSURE READING WITHOUT DIAGNOSIS OF HYPERTENSION 10/18/2013 OJ CHIN MD V72 .42 TEST POSITIVE RESULT 10/18/2013 OJ CHIN MD N 796 .2 ELEVATED BLOOD PRESSURE READING WITHOUT DIAGNOSIS OF HYPERTENSION 10/18/2013 OJ CHIN MD V72 .42 TEST POSITIVE RESULT 10/18/2013 OJ CHIN MD N 796 .2 ELEVATED BLOOD PRESSURE READING WITHOUT DIAGNOSIS OF HYPERTENSION 10/18/2013 OJ CHIN MD V72 .42 TEST POSITIVE RESULT 10/18/2013 NOAH DISLA APRN A 79 6.2 ELEVATED BLOOD PRESSURE READING WITHOUT DIAGNOSIS OF HYPERTENSION 10/18/2013 NOAH DISLA APRN A V72.42 TEST POSITIVE RESULT 12/12/2013 NOAH DISLA APRN A 62 5.8 OTHER SPECIFIED SYMPTOMS ASSOCIATED WITH FEMALE GENITAL ORGANS 01/22/2014 MOISÉS COMBS APRN Ot 599 .0 URIN TRACT INFECTION NOS 01/22/2014 MOISÉS COMBS APRN Ot 646.63 INFECTION-ANTEPARTUM 03/19/2014 JOSY ASH Ot 648.93 OTH CURR COND-ANTEPARTUM 03/19/2014 JOSY ASH Ot 780.4 DIZZINESS AND GIDDINESS 04/26/2014 ORACIO BERNARD DO Ot 648.9 3 OTH CURR COND-ANTEPARTUM 04/26/2014 ORACIO BERNARD DO Ot 789.0 0 ABDOMINAL PAIN, UNSPECIFIED SITE 05/31/2014 GERTRUDE LUI SABINO Ding Ot 278.00 OBESITY, NOS 05/31/2014 GERTRUDE LUI SABINO Toña Ot 644.21 EARLY ONSET DELIVERY-DEL 05/31/2014 GERTRUDE LUI SABINO Toña Ot 648.81 ABN GLUCOSE CHULA-DELIV 05/31/2014 GERTRUDE LUISABINO Ot 649.11 OBESITY COMP PREG/CHILDBIRTH/PUERPERIUM, 05/31/2014 GERTRUDE LUISABINO Ot 663.31 CORD ENTANGLE NEC-DELIV 05/31/2014 GERTRUDE LUISABINO Ot 664.11 DEL W 2 DEG LACERAT-DEL 05/31/2014 GERTRUDE LUISABINO Ot V06.1 [id number], COMBINED [ 05/31/2014 GERTRUDE LUI SABINO Toña Ot V27.0 DELIVER-SINGLE LIVEBORN 06/02/2014 NOAH DISLA APRN Ot V72.42 06/20/2014 ORACIO BERNARD DO Ot 782.3 05/20/2015 NOAH DISLA APRN Ot V72.42 05/20/2015 ORACIO BERNARD DO Ot 782.3 05/21/2015 AUDREY MADISON DO Ot N89.8 OTHER SPECIFIED NONINFLAMMATORY DISORDER 05/21/2015 AUDREY MADISON DO Ot O26.90 RELATED CONDITIONS, UNSP, UNSP 05/21/2015 AUDREY MADISON DO Ot Z3A.01 LESS THAN 8 WEEKS GESTATION OF 06/06/2015 NOAH DISLA APRN Ot V72.42 06/06/2015 ORACIO BERNARD DO Ot 782.3 06/06/2015 JOSY ASH Ot E86.9 VOLUME DEPLETION, UNSPECIFIED 06/06/2015 JOSY ASH Ot O23.41 UNSP INFCT OF URINARY TRACT IN 06/06/2015 JOSY ASH Ot R11.2 NAUSEA WITH VOMITING, UNSPECIFIED 06/06/2015 JOSY ASH Ot Z3A.10 10 WEEKS GESTATION OF 08/31/2015 GERTRUDE LUI, SABINO S Ot O47.02 FALSE LABOR BEFORE 37 COMPLETED WEEKS OF 08/31/2015 JENNIFERECH DO, SABINO S Ot Z3A.22 22 WEEKS GESTATION OF 10/26/2015 NIGHATNOAH HUMAN RESOURCES TRAINING MANAGER Ot V72.42 EXAMINATION OR TEST, POSITIVE 10/26/2015 MARCO ANTONIO LUIORACIO Ot 782.3 EDEMA 10/26/2015 NIGHATTSERINGNOAH A HUMAN RESOURCES TRAINING MANAGER Ot V72.42 EXAMINATION OR TEST, POSITIVE 10/26/2015 ORACIO BERNARD DO Ot 782.3 EDEMA 10/26/2015 ERIC GRAY MD Ot O47. 03 FALSE LABOR BEFORE 37 COMPLETED WEEKS OF 10/26/2015 ERIC GRAY MD Ot Z3A. 35 35 WEEKS GESTATION OF 11/05/2015 ERIC GRAY MD Ot O47. 03 FALSE LABOR BEFORE 37 COMPLETED WEEKS OF 11/05/2015 ERIC GRAY MD Ot Z3A. 35 35 WEEKS GESTATION OF 11/07/2015 GRICELDA LUIAUDREY Ot N89.8 OTHER SPECIFIED NONINFLAMMATORY DISORDER 11/07/2015 AUDREY MADISON DO Ot O26.90 RELATED CONDITIONS, UNSP, UNSP 11/07/2015 GRICELDA LUIAUDREY Ot Z3A.01 LESS THAN 8 WEEKS GESTATION OF 12/01/2015 SABINO LOREDO DO S Ot O99.89 OTH DISEASES AND CONDITIONS COMPL PREG/C 12/01/2015 JENNIFERECH DO, SABINO S Ot R10.2 PELVIC AND PERINEAL PAIN 12/01/2015 JENNIFERECH DO, SABINO S Ot Z3A.35 35 WEEKS GESTATION OF 12/05/2015 JENNIFERECH DO, SABINO S Ot O99.89 OTH DISEASES AND CONDITIONS COMPL PREG/C 12/05/2015 FENECH DO, SABINO S Ot R10.2 PELVIC AND PERINEAL PAIN 12/05/2015 FENECH DO, SABINO S Ot Z3A.35 35 WEEKS GESTATION OF 12/06/2015 ORACIO BERNARD DO Ot O14.0 3 MILD TO MODERATE PRE-ECLAMPSIA, THIRD TR 12/06/2015 ORACIO BERNARD DO Ot O24.4 29 GESTATIONAL DIABETES MELLITUS IN CHILDBI 12/06/2015 ORACIO BERNARD DO Ot O26.8 93 OTH RELATED CONDITIONS, THIRD 12/06/2015 ORACIO BERNARD DO Ot O42.9 13 PRETRM KEEGAN ROM, UNSP TIME BETW RUPT AND 12/06/2015 ORACIO BERNARD DO Ot O60.14X0 LABOR THIRD TRI W DELIVE 12/06/2015 ORACIO BERNARD DO Ot O62.3 PRECIPITATE LABOR 12/06/2015 ORACIO BERNARD DO Ot O70.0 FIRST DEGREE PERINEAL LACERATION DURING 12/06/2015 ORACIO BERNARD DO Ot O99.2 14 OBESITY COMPLICATING CHILDBIRTH 12/06/2015 ORACIO BERNARD DO Ot O99.8 20 STREPTOCOCCUS B CARRIER STATE COMPLICATI 12/06/2015 ORACIO BERNARD DO Ot Z23 ENCOUNTER FOR IMMUNIZATION 12/06/2015 ORACIO BERNARD DO Ot Z37.0 SINGLE LIVE 12/06/2015 ORACIO BERNARD DO Ot Z67.9 0 UNSPECIFIED BLOOD TYPE, RH POSITIVE 12/06/2015 ORACIO BERNARD DO Ot Z68.4 2 BODY MASS INDEX (BMI) 45.0-49.9, ADULT 12/10/2015 SABINO LOREDO DO Ot O26.843 UTERINE SIZE-DATE DISCREPANCY, THIRD TRI 12/10/2015 SABINO LOREDO DO Ot Z3A.35 35 WEEKS GESTATION OF Procedures Code Description [place] [address] ROUT INE VENIPUNCTURE 10/19/2013 84913 HCG QUANTITATIVE 10/19/2013 12031 ROUT INE VENIPUNCTURE 10/21/2013 90357 HCG QUANTITATIVE 10/21/2013 20407 UA W / CULTURE IF INDICATED 12/12/2013 75.69 05/29/2014 [id number] 12/04/2015 Results Test Result Range TSH - 04/27/18 08:21 TSH 1.65 mIU/L NRG Encounters ACCT No. Visit Date/Time Discharge Status Pt. Type Provider Facility Loc./Unit Complaint [id number] 12/12/2013 16:00:00 12/12/2013 23:59: 59 CLS Outpatient NOAH DISLA APRN [id number] 10/21/2013 07:47:00 10/21/2013 23:59: 59 CLS Outpatient OJ CHIN MD N [id number] 10/19/2013 07:46:00 10/19/2013 23:59: 59 CLS Outpatient OJ CHIN MD N [id number] 10/18/2013 13:41:00 10/18/2013 23:59: 59 CLS Outpatient OJ CHIN MD [id number] 11/07/2014 14:32:40 11/07/2014 14:3 2:41 DIS Outpatient [id number] 11/01/2014 12:16:13 Document Registration [id number] 11/01/2014 12:16:09 Document Registration [id number] 11/01/2014 12:16:05 Document Registration [id number] 11/01/2014 12:16:02 Document Registration [id number] 11/01/2014 12:15:58 Document Registration [id number] 11/01/2014 12:15:53 Document Registration [id number] 11/01/2014 12:15:47 Document Registration [id number] 11/01/2014 12:15:38 Document Registration [id number] 11/01/2014 12:15:35 Document Registration [id number] 11/01/2014 12:15:31 Document Registration [id number] 11/01/2014 12:15:27 Document Registration [id number] 11/01/2014 12:15:23 Document Registration [id number] 11/01/2014 12:15:13 Document Registration [id number] 11/01/2014 12:15:10 Document Registration [id number] 11/01/2014 12:15:06 Document Registration [id number] 11/01/2014 12:15:02 Document Registration [id number] 11/01/2014 11:30:01 Document Registration [id number] 11/01/2014 11:29:42 Document Registration [id number] 10/17/2014 10:44:22 Document Registration [id number] 10/17/2014 10:44:18 Document Registration [id number] 10/17/2014 10:44:14 Document Registration [id number] 10/17/2014 10:44:10 Document Registration [id number] 10/17/2014 10:44:06 Document Registration [id number] 10/17/2014 10:43:57 Document Registration [id number] 10/17/2014 10:43:53 Document Registration [id number] 10/17/2014 10:43:49 Document Registration [id number] 10/17/2014 10:43:44 Document Registration [id number] 10/17/2014 10:43:40 Document Registration [id number] 10/17/2014 10:43:36 Document Registration [id number] 10/17/2014 10:43:31 Document Registration [id number] 10/17/2014 10:43:28 Document Registration [id number] 10/17/2014 10:43:24 Document Registration [id number] 10/17/2014 10:43:03 Document Registration [id number] 10/17/2014 10:42:56 Document Registration [id number] 10/17/2014 10:42:50 Document Registration [id number] 10/17/2014 10:42:46 Document Registration [id number] 10/17/2014 10:42:43 Document Registration [id number] 10/17/2014 10:42:39 Document Registration [id number] 10/17/2014 10:42:34 Document Registration [id number] 10/17/2014 10:42:30 Document Registration [id number] 10/17/2014 10:42:26 Document Registration [id number] 10/17/2014 10:42:21 Document Registration [id number] 10/17/2014 10:42:17 Document Registration [id number] 10/17/2014 10:42:12 Document Registration [id number] 12/04/2015 10:21:00 016 11:25:00 DIS Inpatient ORACIO BERNARD DO [facility] LDRP [id number] 12/01/2015 09:13:00 016 12:05:00 DIS Outpatient SABINO LOREDO DO S [facility] WSo [id number] 11/21/2015 14:14:00 016 23:59:59 CLS Outpatient SABINO LOREDO DO [facility] RAD [id number] 10/26/2015 15:35:00 016 19:00:00 DIS Outpatient ERIC GRAY MD [facility] WSo [id number] 08/31/2015 14:34:00 15:30:00 DIS Outpatient SABINO LOREDO DO [facility] WSo [id number] 06/06/2015 13:21:00 015 16:42:00 DIS Emergency JOSY ASH [facility] ER [id number] 05/20/2015 22:33:00 00:44:00 DIS Outpatient GRICELDA LUIAUDREY V [facility] ER [id number] 06/02/2014 15:19:00 014 23:59:59 CLS Outpatient MARCO ANTONIO LUI ORACIO Monterroso [facility] RAD [id number] 05/29/2014 13:19:00 014 12:55:00 DIS Inpatient SABINO LOREDO DO [facility] LDRP [id number] 04/25/2014 21:16:00 014 00:50:00 DIS Outpatient MARCO ANTONIO LUI ORACIO C [facility] WSo [id number] 03/19/2014 17:29:00 014 20:28:00 DIS Emergency JOSY ASH [facility] ER [id number] 01/22/2014 17:00:00 014 19:20:00 DIS Emergency MOISÉS COMBS APRN [facility] ER [id number] 11/16/2013 12:39:00 014 23:59:59 CLS Outpatient NOAH DISLA APRN [facility] RAD [id number] 05/23/2019 09:30:00 05/23/2019 23:59:5 9 CLS Outpatient [facility] [id number] 04/27/2018 07:45:00 Document Registration
[2019-12-04] MEDS ORDERED: NS IV 1000 ML 1,000 ML IV SCH (11:10)
[2019-12-04] MEDS ORDERED: ONDANSETRON 4 MG/2 ML (SDV) Z0FRAN IVP ONE (11:15)
--- NOTE | 2019-12-04 11:18 | ED GU-Female ---
General Stated Complaint: 6 WKS PREG/VOMITING History of Present Illness Date Seen by Provider: Dec 04, 2019 Time Seen by Provider: 11:00 Initial Comments 34 year old female presents with N/V for the last 12 hours. LMP 10/19/19, taking B complex vitamin and unisom for N/V, taking vitamin. She works evenings at [employer], temp was 102 last night in the building. She is drinking extra water, gatorade and scott eva, urinating every 1-2 hours. Occ diarrhea over the last 2-3 weeks, but not in the last 24-48 hours. No spotting or dysuria. Timing/Duration: this morning Severity/Quality: mild Radiation: none Activities at Onset: none Prior Genitourinary Problems: none Associated Symptoms: abdominal pain (cramping, mainly LUQ); No diaphoresis (noted she was sweating when first going to work, then stopped. ), No dysuria, No fever/chills, No lower back pain; nausea/vomiting; No syncope, No urinary ju quency Allergies and Home Medications Allergies Coded Allergies: No Known Drug Allergies (Unverified , 01/22/14) Home Medications Acetaminophen with Codeine 1 Each Tablet, 1-2 TAB PO Q4H PRN for MODERATE TO SEVERE PAIN Prescribed by: SABINO LOREDO on 12/06/15 0849 B12/Levomefolate Calcium/B-6 1 Each Tablet, 1 EACH PO DAILY, (Reported) B6/FA/B12/Co Q10/Herb No.225 1 Each Tablet, 1 EACH PO DAILY, (Reported) Docusate Sodium 100 Mg Capsule, 100 MG PO BID Prescribed by: SABINO LOREDO on 12/06/15 0849 Folic Acid 20 Mg Capsule, 20 MG PO DAILY, (Reported) Ibuprofen 600 Mg Tablet, 600 MG PO Q6H Prescribed by: SABINO LOREDO on 12/06/15 0849 [place] 3,6,9 Combination No.7 92 Mg Tab.chew, 92 MG PO DAILY, (Reported) Ondansetron 4 Mg Tab.rapdis, 4 MG PO Q6H PRN for NAUSEA/VOMITING Prescribed by: MAIKEL SALES on 12/04/19 1205 Vit/Fe Fumarate/Fa 1 Each Tablet, 1 EACH PO DAILY, (Reported) Patient Home Medication List Home Medication List Reviewed: Yes Review of Systems Review of Systems Constitutional: no symptoms reported, see HPI Gastrointestinal: see HPI; No diarrhea, No heartburn, No jaundice; nausea, vomiting Genitourinary: no symptoms reported, see HPI; denies dysuria, denies frequency, denies pain, denies urgency : Yes LMP: Oct 19, 2019 Musculoskeletal: no symptoms reported, see HPI; No muscle pain, No muscle cramps Skin: no symptoms reported, see HPI; No dryness Past Mkfbrvo-Pquuuz-Hpimfm Hx Patient Social History Recent Foreign Travel: No Contact w/Someone Who Travel: No Seasonal Allergies Seasonal Allergies: Yes Past Medical History Last Menstrual Period: Oct 19, 2019 Hx : 4 Hx Para: 2 Hx Total # of Abortions (Sp): 1 Reproductive Disorders: No Female Reproductive Disorders: Denies Sexually Transmitted Disease: No HIV/AIDS: No Kidney Infection, Bladder Infection, UTI-Chronic Pancreatitis Loss of Vision: Denies Hearing Impairment: Denies Depression Adverse Reaction/Blood Tranf: No Family Medical History Arthritis Grandparents (Maternal Grandparents) Cardiovascular disease Grandparents (Paternal Grandmother) Diabetes mellitus 19 FATHER Grandparents (Paternal Grandparents Maternal Grandparents) FH: heart attack Grandparents (Maternal Grandfather) FH: lymphoma Grandparents (Maternal Grandfather) Hypertension 19 MOTHER Grandparents (Maternal Grandmother) Infertility 19 MOTHER (Multiple Miscarriages) Myocardial infarction Grandparents (Maternal Grandfather) Neoplasm Grandparents (Paternal Grandfather) Thyroid disease 19 MOTHER (Hypothyroid) Grandparents (Maternal Grandmother-Hypothyroid) Visual disorder 19 FATHER (Blind in one eye) No Family History of: AIDS Abdominal aortic aneurysm [place]'s disease Alcoholism Alzheimer's disease Aphasia Asthma Cancer of mouth Cataracts Colon cancer Completed stroke Congenital disease Congenital heart disease Coronary thrombosis Cystic fibrosis Deafness or hearing loss Dementia Drug abuse Dysphasia Fibrocystic disease of breast Gastroenteritis Glaucoma Headache disorder Hypercholesterolemia Kidney disease Not obtainable due to adoption Osteoporosis Parkinson's disease Prostate cancer Psychosocial problem Respiratory disorder Seizure disorder Severe allergy Tuberculosis No Pertinent Family Hx Physical Exam Vital Signs Vital Signs - First Documented 12/04/19 12:35 Pulse 81 Resp 12 B/P (MAP) 125/62 Pulse Ox 98 Capillary Refill : Height, Weight, BMI Height: 5'4.00" Weight: 270lbs. 0.0oz. 122.768259ol; 46.3 BMI Method:Actual General Appearance: WD/WN, no apparent distress HEENT: PERRL/EOMI, normal ENT inspection, TMs normal, pharynx normal, other (oral mucosa moist) Neck: non-tender, full range of motion, supple, normal inspection Cardiovascular: normal peripheral pulses, regular rate, rhythm, no edema Respiratory: chest non-tender, lungs clear, normal breath sounds Gastrointestinal: normal bowel sounds, non tender, soft; No distended, No guarding, No rebound, No tenderness Back: normal inspection, no CVA tenderness, no vertebral tenderness Extremities: normal range of motion, non-tender, normal inspection, no pedal edema, no calf tenderness, normal capillary refill Neurologic/Psychiatric: no motor/sensory deficits, alert, normal mood/affect, oriented x 3 Skin: normal color, warm/dry; No pallor Progress/Results/Core Measures Suspected Sepsis SIRS Temperature: Pulse: Respiratory Rate: Laboratory Tests 12/04/19 11:10: White Blood Count 10.4 Blood Pressure / Mean: Laboratory Tests 12/04/19 11:10: Creatinine 0.74, Platelet Count 249, Total Bilirubin 0.4 Results/Orders Lab Results Laboratory Tests Test 12/04/19 11:10 Range/Units White Blood Count 10.4 4.3-11.0 10^3/uL Red Blood Count 4.87 4.35-5.85 10^6/uL Hemoglobin 14.2 11.5-16.0 G/DL Hematocrit 42 35-52 % Mean Corpuscular Volume 86 80-99 FL Mean Corpuscular Hemoglobin 29 25-34 PG Mean Corpuscular Hemoglobin Concent 34 32-36 G/DL Red Cell Distribution Width 14.0 10.0-14.5 % Platelet Count 249 130-400 10^3/uL Mean Platelet Volume 10.9 H 7.4-10.4 FL Neutrophils (%) (Auto) 67 42-75 % Lymphocytes (%) (Auto) 26 12-44 % Monocytes (%) (Auto) 5 0-12 % Eosinophils (%) (Auto) 2 0-10 % Basophils (%) (Auto) 0 0-10 % Neutrophils # (Auto) 7.0 1.8-7.8 X 10^3 Lymphocytes # (Auto) 2.7 1.0-4.0 X 10^3 Monocytes # (Auto) 0.6 0.0-1.0 X 10^3 Eosinophils # (Auto) 0.2 0.0-0.3 10^3/uL Basophils # (Auto) 0.0 0.0-0.1 10^3/uL Urine Color YELLOW Urine Clarity CLEAR Urine pH 7.0 5-9 Urine Specific [place] <=1.005 1.016-1.022 Urine Protein NEGATIVE NEGATIVE Urine Glucose (UA) NEGATIVE NEGATIVE Urine Ketones NEGATIVE NEGATIVE Urine Nitrite NEGATIVE NEGATIVE Urine Bilirubin NEGATIVE NEGATIVE Urine Urobilinogen 0.2 < = 1.0 MG/DL Urine Leukocyte Esterase 1+ H NEGATIVE Urine RBC (Auto) NEGATIVE NEGATIVE Urine RBC NONE /HPF Urine WBC RARE /HPF Urine Squamous Epithelial Cells 2-5 /HPF Urine Crystals NONE /LPF Urine Amorphous Sediment RARE BETI URATES H /LPF Urine Bacteria TRACE /HPF Urine Casts NONE /LPF Urine Mucus NEGATIVE /LPF Urine Culture Indicated NO Urine Test POSITIVE NEGATIVE Sodium Level 137 135-145 MMOL/L Potassium Level 3.8 3.6-5.0 MMOL/L Chloride Level 107 98-107 MMOL/L Carbon Dioxide Level 19 L 21-32 MMOL/L Anion Gap 11 5-14 MMOL/L Blood Urea Nitrogen 8 7-18 MG/DL Creatinine 0.74 0.60-1.30 MG/DL Estimat Glomerular Filtration Rate > 60 BUN/Creatinine Ratio 11 Glucose Level 96 70-105 MG/DL Calcium Level 8.5 8.5-10.1 MG/DL Corrected Calcium 8.3 L 8.5-10.1 MG/DL Total Bilirubin 0.4 0.1-1.0 MG/DL Aspartate Amino Transf (AST/SGOT) 17 5-34 U/L Alanine Aminotransferase (ALT/SGPT) 17 0-55 U/L Alkaline Phosphatase 64 40-136 U/L Total Protein 7.3 6.4-8.2 GM/DL Albumin 4.2 3.2-4.5 GM/DL Human Chorionic Gonadotropin, Quant 32757 H <5 MIU/ML My Orders Orders - MAIKEL SALES Urine Bedside (12/04/19 11:10) Cbc With Automated Diff (12/04/19 11:10) Comprehensive Metabolic Panel (12/04/19 11:10) Ua Culture If Indicated (12/04/19 11:10) Ed Iv/Invasive Line Start (12/04/19 11:10) Ns Iv 1000 Ml (Sodium Chloride 0.9%) (12/04/19 11:10) Ondansetron Injection (Zofran Injectio (12/04/19 11:15) Hcg,Qualitative Urine (12/04/19 12:07) Hcg,Quantitative (12/04/19 12:07) Medications Given in ED Current Medications Medications Dose Ordered Sig/Penny Route Start Time Stop Time Status Last Admin Dose Admin Ondansetron HCl 8 mg ONCE ONCE IVP 12/04/19 11:15 12/04/19 11:16 DC 12/04/19 11:34 8 MG Vital Signs/I&O 12/04/19 12:35 Pulse 81 Resp 12 B/P (MAP) 125/62 Pulse Ox 98 Capillary Refill : Progress Note : Time: 11:00 Progress Note Patient seen and evaluated, will obtain labs, multiple saline 1 L per IV, Zofran 8 mg IV and reevaluate.VS stable. 1200 patient has urinated 2 times, no vertigo with ambulation. No further nausea or vomiting. Taking ice chips. Labs all within normal limits. Discharge instructions and return precautions reviewed with the patient. Departure Impression Primary Impression: Nausea and vomiting during Disposition: 01 HOME, SELF-CARE Condition: Improved Departure-Patient Inst. Decision time for Depature: 12:00 Referrals: SABINO LOREDO DO (PCP/Family) Primary Care Physician Patient Instructions: Nausea and Vomiting of (DC) Add. Discharge Instructions: Continue to increase water intake, alternating with Gatorade. Clear liquid diet for the next 4 hours, then bland diet as tolerated. Continue taking your Vitamin. Follow up with Dr. Loredo, if symptoms are not improving or worsen. Take frequent breaks at work, increase cold fluids before going to work and through your shift. Use Zofran every 6-8 hours, as needed for nausea/vomiting. Return to the Emergency Dept for new, urgent health care needs. Scripts Ondansetron (Ondansetron Odt) 4 Mg Tab.rapdis 4 MG PO Q6H PRN for NAUSEA/VOMITING, #8 TAB 0 Refills Prov: MAIKEL SALES 12/04/19 Work/School Note: Work Release Form Date Seen in the Emergency Department: Dec 04, 2019 Return to Work: Dec 05, 2019 Other Restrictions Listed Below: Breaks every 2 hours to hydrate. Copy Copies To 1: SABINO LOREDO AMY ARNP Dec 04, 2019 11:18
[2019-12-04 11:27] LABS: BASOPHILS % (AUTO) 0 % (0-10); BILIRUBIN,URINE NEGATIVE (NEGATIVE); CLARITY,URINE CLEAR; COLOR,URINE YELLOW; EOSINOPHILS # (AUTO) 0.2 10^3/uL (0.0-0.3); EOSINOPHILS % (AUTO) 2 % (0-10); GLUCOSE, URINE (UA) NEGATIVE (NEGATIVE); HEMATOCRIT 42 % (35-52); HEMOGLOBIN 14.2 G/DL (11.5-16.0); KETONES,URINE NEGATIVE (NEGATIVE); LEUKOCYTE ESTERASE ,URINE 1+ (NEGATIVE); LYMPHOCYTES # (AUTO) 2.7 X 10^3 (1.0-4.0); LYMPHOCYTES % (AUTO) 26 % (12-44); MEAN CORPUSCULAR HEMOGLOBIN 29 PG (25-34); MEAN CORPUSCULAR HGB CONC 34 G/DL (32-36); MEAN CORPUSCULAR VOLUME 86 FL (80-99); MEAN PLATELET VOLUME 10.9 FL (7.4-10.4); MONOCYTES # (AUTO) 0.6 X 10^3 (0.0-1.0); MONOCYTES % (AUTO) 5 % (0-12); NEUTROPHILS % (AUTO) 67 % (42-75); NITRITE,URINE NEGATIVE (NEGATIVE); PLATELET COUNT 249 10^3/uL (130-400); PROTEIN,URINE NEGATIVE (NEGATIVE); WHITE BLOOD COUNT 10.4 10^3/uL (4.3-11.0)
[2019-12-04 11:33] LABS: AMORPHOUS SEDIMENT,UR RARE AMOR URATES /LPF; BACTERIA,URINE TRACE /HPF; WBC,URINE RARE /HPF
[2019-12-04 11:38] LABS: ALBUMIN 4.2 GM/DL (3.2-4.5); CHLORIDE 107 MMOL/L (98-107)
[2019-12-04 11:39] LABS: POTASSIUM 3.8 MMOL/L (3.6-5.0); SODIUM 137 MMOL/L (135-145)
[2019-12-04 11:40] LABS: CALCIUM 8.5 MG/DL (8.5-10.1)
[2019-12-04 11:41] LABS: GLUCOSE 96 MG/DL (70-105); TOTAL PROTEIN 7.3 GM/DL (6.4-8.2)
[2019-12-04 11:42] LABS: CARBON DIOXIDE 19 MMOL/L (21-32)
[2019-12-04 11:43] LABS: BILIRUBIN,TOTAL 0.4 MG/DL (0.1-1.0)
[2019-12-04 11:44] LABS: ALKALINE PHOSPHATASE 64 U/L (40-136)
[2019-12-04 11:45] LABS: CREATININE SERUM 0.74 MG/DL (0.60-1.30); GFR ESTIMATED > 60
[2019-12-04 11:46] LABS: BUN/CREATININE RATIO 11
[2019-12-04 11:47] LABS: ALANINE AMINOTRANSFERASE 17 U/L (0-55)
[2019-12-04] MEDS ORDERED: ONDA4TAB11 PO (12:05)
[2019-12-04 12:35] VITALS: BP 125/62
== END 2019-12-04 12:39 | disposition home or self-care (01) ==
LOC: EDUNIT# 10:49 → ER 10:50
DX: O21.9 Vomiting of pregnancy, unspecified (principal); Z3A.01 Less than 8 weeks gestation of pregnancy; Z82.49 Family history of ischemic heart disease and other diseases of the circulatory system
CPT/HCPCS: 36415; 80053; 81000; 84702; 84703; 85025

== ENCOUNTER 2019-12-14 11:02 | Emergency (ER) | payer BC, MEDICAID ==
[~2019-12-14] VITALS: Ht 162.6 cm; Wt 121.6 kg
--- NOTE | 2019-12-14 11:20 | ED GU-Female ---
General Chief Complaint: OB < 20 WEEKS Stated Complaint: 8 WKS ;CONCERNS OF MISCARRIAGE Source: patient Exam Limitations: no limitations History of Present Illness Date Seen by Provider: Dec 14, 2019 Time Seen by Provider: 11:16 Initial Comments To ER with concerns of miscarriage. She states that she is about 8 weeks and has been nauseated and with breast tenderness during all of this . She is Ab1. She follows with Dr. Loredo. She presents today because for the past 3 days she has had no breast tenderness no nausea and no vomiting. She is concerned that this represented miscarriage. She has no vaginal bleeding or abdominal pain Timing/Duration: constant Severity/Quality: moderate Radiation: none Activities at Onset: none Prior Genitourinary Problems: none Associated Symptoms: denies symptoms Allergies and Home Medications Allergies Coded Allergies: No Known Drug Allergies (Unverified , 01/22/14) Home Medications Acetaminophen with Codeine 1 Each Tablet, 1-2 TAB PO Q4H PRN for MODERATE TO SEVERE PAIN Prescribed by: SABINO LOREDO on 12/06/15 0849 B12/Levomefolate Calcium/B-6 1 Each Tablet, 1 EACH PO DAILY, (Reported) B6/FA/B12/Co Q10/Herb No.225 1 Each Tablet, 1 EACH PO DAILY, (Reported) Cefuroxime Axetil 250 Mg Tablet, 250 MG PO BID Prescribed by: MOISÉS COMBS on 12/14/19 1234 Docusate Sodium 100 Mg Capsule, 100 MG PO BID Prescribed by: SABINO LOREDO on 12/06/15 0849 Folic Acid 20 Mg Capsule, 20 MG PO DAILY, (Reported) Ibuprofen 600 Mg Tablet, 600 MG PO Q6H Prescribed by: SABINO LOREDO on 12/06/15 0849 [place] 3,6,9 Combination No.7 92 Mg Tab.chew, 92 MG PO DAILY, (Reported) Ondansetron 4 Mg Tab.rapdis, 4 MG PO Q6H PRN for NAUSEA/VOMITING Prescribed by: MAIKEL SALES on 12/04/19 1205 Vit/Fe Fumarate/Fa 1 Each Tablet, 1 EACH PO DAILY, (Reported) Patient Home Medication List Home Medication List Reviewed: Yes Review of Systems Review of Systems Constitutional: see HPI EENTM: see HPI Respiratory: no symptoms reported Cardiovascular: no symptoms reported Musculoskeletal: no symptoms reported Skin: no symptoms reported Psychiatric/Neurological: No Symptoms Reported Endocrine: No Symptoms Reported Past Dhqrthj-Ufajal-Awjpmw Hx Patient Social History Recent Foreign Travel: No Contact w/Someone Who Travel: No Recent Hopitalizations: No Seasonal Allergies Seasonal Allergies: Yes Past Medical History Surgeries: No Respiratory: No Cardiac: No Neurological: No Reproductive Disorders: No Female Reproductive Disorders: Denies Sexually Transmitted Disease: No HIV/AIDS: No Kidney Infection, Bladder Infection, UTI-Chronic Gastrointestinal: Yes Pancreatitis Musculoskeletal: No Endocrine: No Loss of Vision: Denies Hearing Impairment: Denies Cancer: No Psychosocial: Yes (As a child) Depression Integumentary: No Blood Disorders: Yes (Blood clots as juvenile) Adverse Reaction/Blood Tranf: No Family Medical History Arthritis Grandparents (Maternal Grandparents) Cardiovascular disease Grandparents (Paternal Grandmother) Diabetes mellitus 19 FATHER Grandparents (Paternal Grandparents Maternal Grandparents) FH: heart attack Grandparents (Maternal Grandfather) FH: lymphoma Grandparents (Maternal Grandfather) Hypertension 19 MOTHER Grandparents (Maternal Grandmother) Infertility 19 MOTHER (Multiple Miscarriages) Myocardial infarction Grandparents (Maternal Grandfather) Neoplasm Grandparents (Paternal Grandfather) Thyroid disease 19 MOTHER (Hypothyroid) Grandparents (Maternal Grandmother-Hypothyroid) Visual disorder 19 FATHER (Blind in one eye) No Family History of: AIDS Abdominal aortic aneurysm [place]'s disease Alcoholism Alzheimer's disease Aphasia Asthma Cancer of mouth Cataracts Colon cancer Completed stroke Congenital disease Congenital heart disease Coronary thrombosis Cystic fibrosis Deafness or hearing loss Dementia Drug abuse Dysphasia Fibrocystic disease of breast Gastroenteritis Glaucoma Headache disorder Hypercholesterolemia Kidney disease Not obtainable due to adoption Osteoporosis Parkinson's disease Prostate cancer Psychosocial problem Respiratory disorder Seizure disorder Severe allergy Tuberculosis No Pertinent Family Hx Physical Exam Vital Signs Vital Signs - First Documented 12/14/19 11:11 Temp 36.7 Pulse 81 Resp 17 B/P (MAP) 119/83 (95) O2 Delivery Room Air Capillary Refill : Height, Weight, BMI Height: 5'4.00" Weight: 270lbs. 0.0oz. 122.180331ub; 20.00 BMI Method:Actual General Appearance: WD/WN, no apparent distress Neck: non-tender, full range of motion Respiratory: no respiratory distress, no accessory muscle use Gastrointestinal: normal bowel sounds, non tender, soft Extremities: normal range of motion, non-tender Neurologic/Psychiatric: alert, normal mood/affect, oriented x 3 Skin: normal color, warm/dry Progress/Results/Core Measures Suspected Sepsis SIRS Temperature: Pulse: Respiratory Rate: Laboratory Tests 12/14/19 12:26: White Blood Count 10.1 Blood Pressure / Mean: Laboratory Tests 12/14/19 12:26: Platelet Count 254 Results/Orders Lab Results Laboratory Tests Test 12/14/19 11:25 12/14/19 12:26 Range/Units Urine Color YELLOW Urine Clarity CLEAR Urine pH 6.0 5-9 Urine Specific [place] 1.025 H 1.016-1.022 Urine Protein NEGATIVE NEGATIVE Urine Glucose (UA) NEGATIVE NEGATIVE Urine Ketones NEGATIVE NEGATIVE Urine Nitrite NEGATIVE NEGATIVE Urine Bilirubin NEGATIVE NEGATIVE Urine Urobilinogen 0.2 < = 1.0 MG/DL Urine Leukocyte Esterase 1+ H NEGATIVE Urine RBC (Auto) NEGATIVE NEGATIVE Urine RBC NONE /HPF Urine WBC 5-10 H /HPF Urine Squamous Epithelial Cells 10-25 H /HPF Urine Crystals NONE /LPF Urine Bacteria FEW H /HPF Urine Casts NONE /LPF Urine Mucus SMALL H /LPF Urine Culture Indicated YES White Blood Count 10.1 4.3-11.0 10^3/uL Red Blood Count 4.91 4.35-5.85 10^6/uL Hemoglobin 14.1 11.5-16.0 G/DL Hematocrit 43 35-52 % Mean Corpuscular Volume 87 80-99 FL Mean Corpuscular Hemoglobin 29 25-34 PG Mean Corpuscular Hemoglobin Concent 33 32-36 G/DL Red Cell Distribution Width 14.0 10.0-14.5 % Platelet Count 254 130-400 10^3/uL Mean Platelet Volume 10.9 H 7.4-10.4 FL Neutrophils (%) (Auto) 73 42-75 % Lymphocytes (%) (Auto) 21 12-44 % Monocytes (%) (Auto) 5 0-12 % Eosinophils (%) (Auto) 1 0-10 % Basophils (%) (Auto) 0 0-10 % Neutrophils # (Auto) 7.4 1.8-7.8 X 10^3 Lymphocytes # (Auto) 2.2 1.0-4.0 X 10^3 Monocytes # (Auto) 0.5 0.0-1.0 X 10^3 Eosinophils # (Auto) 0.1 0.0-0.3 10^3/uL Basophils # (Auto) 0.0 0.0-0.1 10^3/uL My Orders Orders - MOISÉS COMBS APRN Cbc With Automated Diff (12/14/19 11:04) Ua Culture If Indicated (12/14/19 11:04) Hcg,Quantitative (12/14/19 11:04) Abo Rh Type (12/14/19 11:04) Urine Culture (12/14/19 11:25) Ziprasidone Injection (Geodon Injection) (12/14/19 11:53) Water (Sterile) For Injection (Sterile W (12/14/19 11:56) Vital Signs/I&O 12/14/19 11:11 Temp 36.7 Pulse 81 Resp 17 B/P (MAP) 119/83 (95) O2 Delivery Room Air Capillary Refill : Departure Impression Primary Impression: Qualified Codes: Z3A.08 - 8 weeks gestation of Additional Impression: Urinary tract infection during Disposition: 01 HOME, SELF-CARE Condition: Stable Departure-Patient Inst. Decision time for Depature: 12:33 Referrals: SABINO LOREDO DO (PCP/Family) Primary Care Physician Patient Instructions: Urinary Tract Infection, Adult (DC) Add. Discharge Instructions: 1. Antibiotics as directed 2. Follow up with your doctor this week 3. All discharge instructions reviewed with patient and/or family. Voiced understanding. Scripts Cefuroxime Axetil (Cefuroxime) 250 Mg Tablet 250 MG PO BID, #10 TAB Prov: MOISÉS COMBS APRN 12/14/19 Copy Copies To 1: SABINO LOREDO PETER J APRN Dec 14, 2019 11:20
[2019-12-14 11:31] LABS: BILIRUBIN,URINE NEGATIVE (NEGATIVE); CLARITY,URINE CLEAR; COLOR,URINE YELLOW; GLUCOSE, URINE (UA) NEGATIVE (NEGATIVE); KETONES,URINE NEGATIVE (NEGATIVE); LEUKOCYTE ESTERASE ,URINE 1+ (NEGATIVE); NITRITE,URINE NEGATIVE (NEGATIVE); PROTEIN,URINE NEGATIVE (NEGATIVE)
[2019-12-14 11:39] LABS: BACTERIA,URINE FEW /HPF
[2019-12-14] MEDS ORDERED: ZIPRASIDONE 20 MG INJ (GEODON) VIAL IM ONE (11:53)
[2019-12-14] MEDS ORDERED: WATER (STERILE) FOR INJECTION 10 ML ONE (11:56)
[2019-12-14 12:33] LABS: BASOPHILS % (AUTO) 0 % (0-10); EOSINOPHILS # (AUTO) 0.1 10^3/uL (0.0-0.3); EOSINOPHILS % (AUTO) 1 % (0-10); HEMATOCRIT 43 % (35-52); HEMOGLOBIN 14.1 G/DL (11.5-16.0); LYMPHOCYTES # (AUTO) 2.2 X 10^3 (1.0-4.0); LYMPHOCYTES % (AUTO) 21 % (12-44); MEAN CORPUSCULAR HEMOGLOBIN 29 PG (25-34); MEAN CORPUSCULAR HGB CONC 33 G/DL (32-36); MEAN CORPUSCULAR VOLUME 87 FL (80-99); MEAN PLATELET VOLUME 10.9 FL (7.4-10.4); MONOCYTES # (AUTO) 0.5 X 10^3 (0.0-1.0); MONOCYTES % (AUTO) 5 % (0-12); NEUTROPHILS # (AUTO) 7.4 X 10^3 (1.8-7.8); NEUTROPHILS % (AUTO) 73 % (42-75); PLATELET COUNT 254 10^3/uL (130-400); WHITE BLOOD COUNT 10.1 10^3/uL (4.3-11.0)
[2019-12-14] MEDS ORDERED: CEFU250T80 PO (12:34)
[2019-12-14 13:21] VITALS: BP 133/76
== END 2019-12-14 13:21 | disposition home or self-care (01) ==
LOC: EDUNIT# 11:02 → ER 11:04
DX: O23.41 Unspecified infection of urinary tract in pregnancy, first trimester (principal); Z3A.08 8 weeks gestation of pregnancy; Z82.49 Family history of ischemic heart disease and other diseases of the circulatory system
CPT/HCPCS: 36415; 81000; 84702; 85025; 87088; 99282

== ENCOUNTER 2020-02-24 23:59 | Emergency (ER) | payer BC, MEDICAID ==
[~2020-02-24] VITALS: Ht 163 cm; Wt 121.8 kg
[~2020-02-24 23:59] MED LIST changes: +CEFU250T80 PO
[2020-02-25] MEDS ORDERED: LACTATED RINGERS 1,000 ML IV ONE (00:11)
--- NOTE | 2020-02-25 00:42 | ED General ---
General Chief Complaint: Exposure Stated Complaint: DEHYDRATED,18 WKS PREG Nursing Triage Note: C/O POSSIBLE DEHYDRATION, REPORTS DIZZINESS, STOPPING SWEATING AT WORK. Nursing Sepsis Screen: No Definite Risk Source of Information: Patient Exam Limitations: No Limitations (ULYSSES JEONG STUDENT) History of Present Illness Date Seen by Provider: Feb 25, 2020 Time Seen by Provider: 00:27 Initial Comments This is a 34 YO female, A1, who presents to the ED after feeling dizzy and feverish starting last night at 20:30. She also had some nausea, but no vomiting and states that the nausea has now subsided. She states she has had sx like this with all of her other pregnancies as well. She has a history of gestational diabetes and pre-eclampsia in the past. No vaginal bleeding or discharge, but feels like she had some Ramón-Rodriguez contractions. Took Tylenol at 21:00 last night. (ULYSSES JEONG STUDENT) Allergies and Home Medications Allergies Coded Allergies: No Known Drug Allergies (Unverified , 01/22/14) Home Medications Acetaminophen with Codeine 1 Each Tablet, 1-2 TAB PO Q4H PRN for MODERATE TO SEVERE PAIN Prescribed by: SABINO LOREDO on 12/06/15 0849 B12/Levomefolate Calcium/B-6 1 Each Tablet, 1 EACH PO DAILY, (Reported) B6/FA/B12/Co Q10/Herb No.225 1 Each Tablet, 1 EACH PO DAILY, (Reported) Docusate Sodium 100 Mg Capsule, 100 MG PO BID Prescribed by: SABINO LOREDO on 12/06/15 0849 Folic Acid 20 Mg Capsule, 20 MG PO DAILY, (Reported) Ibuprofen 600 Mg Tablet, 600 MG PO Q6H Prescribed by: SABINO LOREDO on 12/06/15 0849 [place] 3,6,9 Combination No.7 92 Mg Tab.chew, 92 MG PO DAILY, (Reported) Ondansetron 4 Mg Tab.rapdis, 4 MG PO Q6H PRN for NAUSEA/VOMITING Prescribed by: MAIKEL SALES on 12/04/19 1205 Vit/Fe Fumarate/Fa 1 Each Tablet, 1 EACH PO DAILY, (Reported) Patient Home Medication List Home Medication List Reviewed: Yes (INES OCAMPO MD) Review of Systems Review of Systems Constitutional: see HPI EENTM: see HPI Respiratory: no symptoms reported Cardiovascular: no symptoms reported Gastrointestinal: no symptoms reported Genitourinary: see HPI : Yes Expected Date of Delivery: Jul 25, 2020 Musculoskeletal: no symptoms reported Skin: no symptoms reported Psychiatric/Neurological: See HPI Hematologic/Lymphatic: No Symptoms Reported Immunological/Allergic: no symptoms reported (ULYSSES JEONG) All Other Systems Reviewed Negative Unless Noted: Yes (ULYSSES JEONG) Past Pamsxlq-Kpnmeq-Kpaipr Hx Patient Social History Alcohol Use: Denies Use Recreational Drug Use: No Smoking Status: Never a Smoker 2nd Hand Smoke Exposure: Yes Recent Foreign Travel: No Contact w/Someone Who Travel: No Recent Infectious Disease Expo: No Recent Hopitalizations: No Physical Abuse: No Sexual Abuse: No Mistreated: No Fear: No (ULYSSES JEONG) Seasonal Allergies Seasonal Allergies: Yes (ULYSSES JEONG) Past Medical History Surgeries: No Respiratory: No Cardiac: No Neurological: No : Yes Expected Date of Delivery: Jul 25, 2020 Last Menstrual Period: Oct 19, 2019 Hx : 3 Hx Para: 4 Reproductive Disorders: No Female Reproductive Disorders: Denies Sexually Transmitted Disease: No HIV/AIDS: No Genitourinary: Yes Kidney Infection, Bladder Infection, UTI-Chronic Gastrointestinal: Yes Pancreatitis Musculoskeletal: No Endocrine: No HEENT: No Loss of Vision: Denies Hearing Impairment: Denies Cancer: No Psychosocial: Yes Depression Integumentary: No Blood Disorders: Yes Adverse Reaction/Blood Tranf: No (ULYSSES JEONG) Family Medical History Arthritis Grandparents (Maternal Grandparents) Cardiovascular disease Grandparents (Paternal Grandmother) Diabetes mellitus 19 FATHER Grandparents (Paternal Grandparents Maternal Grandparents) FH: heart attack Grandparents (Maternal Grandfather) FH: lymphoma Grandparents (Maternal Grandfather) Hypertension 19 MOTHER Grandparents (Maternal Grandmother) Infertility 19 MOTHER (Multiple Miscarriages) Myocardial infarction Grandparents (Maternal Grandfather) Neoplasm Grandparents (Paternal Grandfather) Thyroid disease 19 MOTHER (Hypothyroid) Grandparents (Maternal Grandmother-Hypothyroid) Visual disorder 19 FATHER (Blind in one eye) No Family History of: AIDS Abdominal aortic aneurysm [place]'s disease Alcoholism Alzheimer's disease Aphasia Asthma Cancer of mouth Cataracts Colon cancer Completed stroke Congenital disease Congenital heart disease Coronary thrombosis Cystic fibrosis Deafness or hearing loss Dementia Drug abuse Dysphasia Fibrocystic disease of breast Gastroenteritis Glaucoma Headache disorder Hypercholesterolemia Kidney disease Not obtainable due to adoption Osteoporosis Parkinson's disease Prostate cancer Psychosocial problem Respiratory disorder Seizure disorder Severe allergy Tuberculosis No Pertinent Family Hx (ULYSSES JEONG) Physical Exam Vital Signs Vital Signs - First Documented 02/25/20 00:23 Temp 36.4 Pulse 101 Resp 16 B/P (MAP) 131/74 (93) Pulse Ox 100 O2 Delivery Room Air (INES OCAMPO MD) Vital Signs Capillary Refill : Less Than 3 Seconds (ULYSSES JEONG STUDENT) Height, Weight, BMI Height: 5'4.00" Weight: 270lbs. 0.0oz. 122.307173yr; 45.00 BMI Method:Actual General Appearance: WD/WN, Other (appears uncomfortable) Eyes: Bilateral Eye EOMI HEENT: Moist Mucous Membranes Neck: Supple Respiratory: Lungs Clear, Normal Breath Sounds, No Accessory Muscle Use, No Respiratory Distress Cardiovascular: Regular Rate, Rhythm, No Murmur Gastrointestinal: Non Tender, Other (gravid and obese abdomen) Extremity: Normal Inspection Neurologic/Psychiatric: Alert, Oriented x3, Normal Mood/Affect Skin: Normal Color, Damp Lymphatic: No Adenopathy (ULYSSES JEONG) Progress/Results/Core Measures Suspected Sepsis Recent Fever Within 48 Hours: No Infection Criteria Present: None New/Unexplained Altered Menta: No Sepsis Screen: No Definite Risk SIRS Temperature: Pulse: 101 Respiratory Rate: 16 Laboratory Tests 02/25/20 00:28: Blood Pressure 131 /74 Mean: 93 Laboratory Tests 02/25/20 00:28: (ULYSSES JEONG STUDENT) Results/Orders Lab Results (INES OCAMPO MD) My Orders (INES OCAMPO MD) Medications Given in ED (INES OCAMPO MD) Vital Signs/I&O (INES OCAMPO MD) Vital Signs/I&O Capillary Refill : Less Than 3 Seconds (ULYSSES JEONG STUDENT) Blood Pressure Mean: 93 Departure Impression Primary Impression: Abdominal cramping affecting Additional Impression: Lightheadedness Disposition: 01 HOME, SELF-CARE Condition: Improved Departure-Patient Inst. Decision time for Depature: 01:36 (INES OCAMPO MD) Referrals: [facility]/ (PCP) Primary Care Physician EARNEST HEAD APRN (Family) Primary Care Physician Patient Instructions: Stomach Pain in Early Add. Discharge Instructions: Drink plenty of clear liquids and get plenty of rest. Follow-up with your medical technologist generalist as soon as possible. Have them check your blood pressure and your urine again at your next visit. Return to care if you have worsening symptoms. If you have any further cramping, you may try taking Benadryl 25 mg, Tylenol 1000 mg, and a large glass of water. All discharge instructions reviewed with patient and/or family. Voiced understanding. This 34-year-old woman at approximately 18 weeks gestational age presents to the emergency room with complaints of feeling dehydrated because of lightheadedness and pelvic cramping. I have personally interviewed and examined this patient along with Ulysses Jeong, MS 3. I reviewed MS 3 documentation and agree with her history, physical, and assessments except were otherwise noted. Labs were assessed and patient was hydrated with a liter of LR. This seemed to improve her symptoms. We did attempt to obtain heart tones but patient's body habitus was a limiting factor. Although heart tones were not located, patient was feeling movement. Patient's discharge blood pressure was slightly elevated. She was advised to have this reviewed at her follow-up appointment. Exam: Gen.: Alert, oriented, obese, no acute distress HEENT: Normocephalic and atraumatic, mucous murmurs moist Heart: Regular rate and rhythm without murmur Lungs: Clear to auscultation bilaterally Abdomen: Soft, nontender, obese Neuropsych: Alert, oriented, mood and affect appropriate (INES OCAMPO MD) Copy Copies To 1: SABINO LOREDO CHRISTINE MED STUDENT Feb 25, 2020 00:41 INES OCAMPO MD Feb 25, 2020 01:38
[2020-02-25 00:45] LABS: BASOPHILS % (AUTO) 0 % (0-10); EOSINOPHILS # (AUTO) 0.3 10^3/uL (0.0-0.3); EOSINOPHILS % (AUTO) 3 % (0-10); HEMATOCRIT 40 % (35-52); HEMOGLOBIN 13.4 G/DL (11.5-16.0); LYMPHOCYTES # (AUTO) 3.1 X 10^3 (1.0-4.0); LYMPHOCYTES % (AUTO) 25 % (12-44); MEAN CORPUSCULAR HEMOGLOBIN 29 PG (25-34); MEAN CORPUSCULAR HGB CONC 34 G/DL (32-36); MEAN CORPUSCULAR VOLUME 86 FL (80-99); MEAN PLATELET VOLUME 10.8 FL (7.4-10.4); MONOCYTES # (AUTO) 0.5 X 10^3 (0.0-1.0); MONOCYTES % (AUTO) 4 % (0-12); NEUTROPHILS # (AUTO) 8.6 X 10^3 (1.8-7.8); NEUTROPHILS % (AUTO) 69 % (42-75); PLATELET COUNT 227 10^3/uL (130-400); RED CELL DISTRIBUTION WIDTH 13.9 % (10.0-14.5); WHITE BLOOD COUNT 12.5 10^3/uL (4.3-11.0)
[2020-02-25 00:52] LABS: BILIRUBIN,URINE NEGATIVE (NEGATIVE); CLARITY,URINE CLEAR; COLOR,URINE YELLOW; GLUCOSE, URINE (UA) NEGATIVE (NEGATIVE); KETONES,URINE NEGATIVE (NEGATIVE); LEUKOCYTE ESTERASE ,URINE NEGATIVE (NEGATIVE); NITRITE,URINE NEGATIVE (NEGATIVE); PROTEIN,URINE TRACE (NEGATIVE)
[2020-02-25 00:58] LABS: ALBUMIN 3.9 GM/DL (3.2-4.5)
[2020-02-25 00:59] LABS: CHLORIDE 107 MMOL/L (98-107); POTASSIUM 3.7 MMOL/L (3.6-5.0); SODIUM 137 MMOL/L (135-145)
[2020-02-25 01:00] LABS: CALCIUM 8.1 MG/DL (8.5-10.1)
[2020-02-25 01:01] LABS: GLUCOSE 113 MG/DL (70-105); TOTAL PROTEIN 6.9 GM/DL (6.4-8.2)
[2020-02-25 01:02] LABS: CARBON DIOXIDE 19 MMOL/L (21-32)
[2020-02-25 01:03] LABS: BILIRUBIN,TOTAL 0.2 MG/DL (0.1-1.0)
[2020-02-25 01:05] LABS: ALKALINE PHOSPHATASE 58 U/L (40-136); CREATININE SERUM 0.66 MG/DL (0.60-1.30); GFR ESTIMATED > 60
[2020-02-25 01:06] LABS: AMORPHOUS SEDIMENT,UR LARGE AMOR URATES /LPF; BACTERIA,URINE FEW /HPF; SQUAMOUS EPITHELIAL CELL,UR 25-50 /HPF; WBC,URINE 0-2 /HPF
[2020-02-25 01:06] LABS: BUN/CREATININE RATIO 9
[2020-02-25 01:08] LABS: ALANINE AMINOTRANSFERASE 16 U/L (0-55)
--- NOTE | 2020-02-25 01:30 | NUR ---
ERP UNABLE TO ASSESS FHT, DID FEEL BABY MOVING.
[2020-02-25 01:40] VITALS: BP 143/93
== END 2020-02-25 01:42 | disposition home or self-care (01) ==
LOC: EDUNIT# 23:59 → ER 02-25 00:03
DX: O26.892 Other specified pregnancy related conditions, second trimester (principal); R10.9 Unspecified abdominal pain; R42 Dizziness and giddiness; Z3A.18 18 weeks gestation of pregnancy; Z77.22 Contact with and (suspected) exposure to environmental tobacco smoke (acute) (chronic); Z82.49 Family history of ischemic heart disease and other diseases of the circulatory system
CPT/HCPCS: 36415; 80053; 81000; 83735; 85025; 87088

== ENCOUNTER → 2020-03-08 | Outpatient (CLI) | payer BC, MEDICAID ==
--- NOTE | 2020-03-08 12:42 | Diagnostic Imaging Report ---
INDICATION: survey. TECHNIQUE: Multiple real-time grayscale images were obtained over the gravid uterus. COMPARISON: None. FINDINGS: There is a single live fetus in a cephalic presentation. heart rate was recorded at 144 bpm. Placenta is anterior. Amniotic fluid volume appears normal. survey demonstrates kidneys, bladder and stomach to be unremarkable. brain is unremarkable. There is a four-chambered heart. There is a three-vessel cord with normal insertion. spine is unremarkable. Biometrical measurements are as follows: Biparietal 4.93 cm, age 21 weeks 0 days. Head circumference 17.78 cm, age 20 weeks 2 days. Abdominal circumference 16.40 cm, age 21 weeks 4 days. Femur length 3.43 cm, age 20 weeks 6 days. Sonographic estimate age: 21 weeks 0 days. Sonographic estimated date of delivery: 07/19/2020. Estimated Weight: 396 gm (+/- 58 gm). LMP percentile: 90%. heart rate: 144 beats per minute. number: 1 of 1. IMPRESSION: Single live IUP 21 weeks 0 days gestational age. The estimated date of confinement sonographically is 07/19/2020. Dictated by: Dictated on workstation # [id number]
== END ==
LOC: RAD 10:38
PROVIDERS: ATTEND Nurse Practitioner Women's Health
DX: Z34.92 Encounter for supervision of normal pregnancy, unspecified, second trimester (principal); Z3A.21 21 weeks gestation of pregnancy; Z20.828 Contact with and (suspected) exposure to other viral communicable diseases
CPT/HCPCS: 76805

== ENCOUNTER 2020-04-23 23:56 | Outpatient (CLI) | payer BC, MEDICAID ==
[~2020-04-23] VITALS: Ht 162.6 cm; Wt 125.8 kg
--- NOTE | 2020-04-24 | NUR ---
MILLICENT GENAO presented to unit via ambulatory from ED, accompanied by self, with c/o ABD PAIN. MILLICENT GENAO weighed, gowned, voided, and to bed. EFHM and TOCO applied, VS taken. MILLICENT GENAO oriented to bed controls, call light, TV, heat, and A/C controls. above and further assessments completed per kinga hyman.
[2020-04-24 00:10] VITALS: BP 135/78
--- NOTE | 2020-04-24 00:15 | NUR ---
PT STATES HAVING ABDOMINAL "DISCOMFORT" SINCE 6PM TONIGHT, FROM TOP OF PELVIS TO BOTTOM OF RIB CAGE, PT STATES IT IS CONSTANT AND HAS SLOWLY GOTTEN WORSE WHILE PT IS AT WORK FROM 3PM-0000. PT DENIES RECENT SEX. PT STATES DRINK SODA AND WATER, ENC WATER INTAKE ONLY. PT STATES HAD BURNING AND PAIN WITH URINATION LAST WEEK WITH LIGHT PINK NOTED WITH VOIDED, PT STARTED TAKING CRANBERRY PILLS AND HAS NOT NOTICED IT SINCE. +FM, PT NOTICES INCREASE IN FM WITH EFM ON. DENIES FEELING VAGINAL PRESSURE, DENIES VAGINAL DISCHARGE OR BLEEDING. DENIES FEELING CTX'S. DESCRIBES PAIN ACHE ALL OVER.
[2020-04-24 00:34] LABS: BILIRUBIN,URINE NEGATIVE (NEGATIVE); CLARITY,URINE SL CLOUDY; COLOR,URINE YELLOW; GLUCOSE, URINE (UA) NEGATIVE (NEGATIVE); KETONES,URINE NEGATIVE (NEGATIVE); LEUKOCYTE ESTERASE ,URINE NEGATIVE (NEGATIVE); NITRITE,URINE NEGATIVE (NEGATIVE); PROTEIN,URINE NEGATIVE (NEGATIVE)
[2020-04-24 00:53] LABS: BACTERIA,URINE NEGATIVE /HPF; RBC,URINE 0-2 /HPF
[2020-04-24 01:07] VITALS: BP 135/78
--- NOTE | 2020-04-24 01:07 | NUR ---
DR. LOREDO CALLED AND DISCUSSED COMPLAINTS WITH HIM, UA RESULTS, VS. DC HOME ORDERS RECEIVED. PT HAS NOT SEEN IN OVER ONE MONTH, ENC TO MAKE APPOINTMENT.
--- NOTE | 2020-04-24 01:22 | NUR ---
PT AMBULATED OFF UNIT WITH NO S/S OF DISTRESS NOTED.
--- NOTE | 2020-04-24 09:34 | Physician Query-Final Dx ---
JAY BAHENA 04/24/20 0934: Clinic Account Progress/Dx Physician Query: Please give diagnosis Please include # weeks gestation Date of Service Apr 23, 2020 at 23:56 SABINO LOREDO DO 04/25/20 0809: Clinic Account Progress/Dx DIAGNOSIS: Diagnosis 26 week IUP abdominal tightness JAY BAHENA Apr 24, 2020 09:34 SABINO LOREDO DO Apr 25, 2020 08:09
== END 2020-04-24 01:22 | disposition home or self-care (01) ==
LOC: WSo 23:56 → LDRP 23:57 → WSo 04-24 01:22
PROVIDERS: ATTEND Obstetrics & Gynecology
DX: Z34.90 Encounter for supervision of normal pregnancy, unspecified, unspecified trimester (principal); Z3A.00 Weeks of gestation of pregnancy not specified
CPT/HCPCS: 81000

== ENCOUNTER 2020-06-16 00:11 | Outpatient (CLI) | payer BC, MEDICAID ==
[~2020-06-16] VITALS: Ht 162.6 cm; Wt 131.8 kg
--- NOTE | 2020-06-16 00:17 | NUR ---
MILLICENT GENAO presented to unit via ambulation from ED, accompanied by self, with c/o TINGLING SENSATION. MILLICENT GENAO weighed, gowned, voided, and to bed. EFHM and TOCO applied, VS taken. MILLICENT GENAO oriented to bed controls, call light, TV, heat, and A/C controls.
[2020-06-16 00:30] VITALS: BP 167/76
[2020-06-16 00:33] VITALS: BP 167/76
[2020-06-16 00:39] VITALS: BP 151/85
--- NOTE | 2020-06-16 00:44 | NUR ---
Dr Sanchez notified of pt arrival and status. Informed of FHT's, ctx, VE. UA pending. Orders received to discharge pt home as long as UA looks ok.
[2020-06-16 00:45] LABS: BILIRUBIN,URINE NEGATIVE (NEGATIVE); CLARITY,URINE CLEAR; COLOR,URINE YELLOW; GLUCOSE, URINE (UA) NEGATIVE (NEGATIVE); KETONES,URINE NEGATIVE (NEGATIVE); LEUKOCYTE ESTERASE ,URINE TRACE (NEGATIVE); NITRITE,URINE NEGATIVE (NEGATIVE); PROTEIN,URINE NEGATIVE (NEGATIVE)
[2020-06-16 00:52] LABS: BACTERIA,URINE TRACE /HPF; SQUAMOUS EPITHELIAL CELL,UR 25-50 /HPF; WBC,URINE RARE /HPF
[2020-06-16 01:00] VITALS: BP 140/81
--- NOTE | 2020-06-16 01:20 | NUR ---
Discharge instructions given. To see Dr. Day in the office on Tuesday 06/19. Discussed movement, ctx, leaking fluid, or any other s/s of labor or questions. Pt verbalized understanding. Discharged home in stable condition.
--- NOTE | 2020-06-18 08:09 | Physician Query-Final Dx ---
JAY BAHENA 06/18/20 0809: Clinic Account Progress/Dx Physician Query: Please give diagnosis Please include # weeks gestation Date of Service Jun 16, 2020 at 00:11 ILENE PEREZ MD 06/18/20 0817: Clinic Account Progress/Dx DIAGNOSIS: Diagnosis False labor at 34 weeks gestation JAY BAHENA Jun 18, 2020 08:09 ILENE PEREZ MD Jun 18, 2020 08:17
== END 2020-06-16 01:20 | disposition home or self-care (01) ==
LOC: WSo 00:11 → LDRP 00:11 → WSo 01:20
PROVIDERS: ATTEND Obstetrics & Gynecology
DX: O47.03 False labor before 37 completed weeks of gestation, third trimester (principal); Z3A.34 34 weeks gestation of pregnancy
CPT/HCPCS: 81000; 87077; 87088; G0463; 99213

== ENCOUNTER 2020-06-23 18:26 | Outpatient (CLI) | payer BC, MEDICAID ==
[~2020-06-23] VITALS: Ht 162.6 cm; Wt 129.7 kg
--- NOTE | 2020-06-23 18:31 | NUR ---
MILLICENT GENAO presented to unit via ambulation from ED, accompanied by self, with c/o HIGH BP. MILLICENT GENAO weighed, gowned, voided, and to bed. EFHM and TOCO applied, VS taken. MILLICENT GENAO oriented to bed controls, call light, TV, heat, and A/C controls.
[2020-06-23 18:53] VITALS: BP 142/82
[2020-06-23 19:10] VITALS: BP 129/70
[2020-06-23 19:15] VITALS: BP 142/82
--- NOTE | 2020-06-23 19:25 | NUR ---
Dr. Sanchez notified of patient arrival, complaints, patient assessment, UA, SVE, and montior strip. Orders received to discharge patient home once reactive strip was obtained.
[2020-06-23 19:35] VITALS: BP 142/68
[2020-06-23 20:05] VITALS: BP 137/78
[2020-06-23 20:15] VITALS: BP 146/74
--- NOTE | 2020-06-23 20:35 | NUR ---
Written discharge instructions reviewed with patient. Discharge instructions signed and copy given. Patient ambulated off unit, condition stable. No signs or symptoms of distress.
--- NOTE | 2020-06-24 09:04 | Physician Query-Final Dx ---
JAY BAHENA 06/24/20 0904: Clinic Account Progress/Dx Physician Query: Please give diagnosis Please include # weeks gestation Date of Service Jun 23, 2020 at 18:26 ILENE PEREZ MD 06/25/20 0748: Clinic Account Progress/Dx DIAGNOSIS: Diagnosis PIH AT 35 WEEKS JAY BAHENA Jun 24, 2020 09:04 ILENE PEREZ MD Jun 25, 2020 07:48
== END 2020-06-23 20:35 | disposition home or self-care (01) ==
LOC: WSo 18:26 → LDRP 18:26 → WSo 20:35
PROVIDERS: ATTEND Obstetrics & Gynecology
DX: O13.3 Gestational [pregnancy-induced] hypertension without significant proteinuria, third trimester (principal); Z3A.35 35 weeks gestation of pregnancy
CPT/HCPCS: 99214

== ENCOUNTER 2020-06-28 16:59 | Outpatient (CLI) | payer BC, MEDICAID ==
[~2020-06-28] VITALS: Ht 162.6 cm; Wt 130.2 kg
--- NOTE | 2020-06-28 17:05 | NUR ---
MILLICENT GENAO presented to unit via from ED, accompanied by self, with c/o ELEV BP 36 WKS PREG. MILLICENT GENAO weighed, gowned, voided, and to bed. EFHM and TOCO applied, VS taken. MILLICENT GENAO oriented to bed controls, call light, TV, heat, and A/C controls.
[2020-06-28 17:25] VITALS: BP 144/91
[2020-06-28 17:33] VITALS: BP 144/91
[2020-06-28 18:08] VITALS: BP 144/83
[2020-06-28 18:27] LABS: BILIRUBIN,URINE NEGATIVE (NEGATIVE); CLARITY,URINE CLEAR; COLOR,URINE YELLOW; GLUCOSE, URINE (UA) NEGATIVE (NEGATIVE); KETONES,URINE NEGATIVE (NEGATIVE); LEUKOCYTE ESTERASE ,URINE NEGATIVE (NEGATIVE); NITRITE,URINE NEGATIVE (NEGATIVE); PROTEIN,URINE NEGATIVE (NEGATIVE)
[2020-06-28 18:35] LABS: BACTERIA,URINE NEGATIVE /HPF
--- NOTE | 2020-06-28 19:33 | NUR ---
D/C instructions given & explained, pt. verbalized understanding & signed, copy of D/C instructions to pt. Pt. left [facility] ambulatory unaccompanied, to home via private vehicle.
--- NOTE | 2020-07-02 08:39 | Physician Query-Final Dx ---
JAY BAHENA 07/02/20 0839: Clinic Account Progress/Dx Physician Query: Please give diagnosis Please include # weeks gestation Date of Service Jun 28, 2020 at 16:59 ORACIO BERNARD DO 07/02/20 1503: Clinic Account Progress/Dx DIAGNOSIS: Diagnosis 36 week gestation obesity elevated blood pressures history of labor JAY BAHENA Jul 02, 2020 08:39 ORACIO BERNARD DO Jul 02, 2020 15:03
== END 2020-06-28 19:33 | disposition home or self-care (01) ==
LOC: LDRP 16:59 → WSo 16:59
PROVIDERS: ATTEND Obstetrics & Gynecology
DX: O13.3 Gestational [pregnancy-induced] hypertension without significant proteinuria, third trimester (principal); Z3A.00 Weeks of gestation of pregnancy not specified
CPT/HCPCS: 81000; G0463; 99213

== ENCOUNTER 2020-07-01 11:03 | Outpatient (CLI) | payer BC, MEDICAID ==
[~2020-07-01] VITALS: Ht 162 cm; Wt 130.4 kg
--- NOTE | 2020-07-01 11:10 | NUR ---
MILLICENT GENAO presented to unit via ambulatory from ED, accompanied by self , with c/o ABD PAIN. MILLICENT GENAO weighed, gowned, voided, and to bed. EFHM and TOCO applied, VS taken. MILLICENT GENAO oriented to bed controls, call light, TV, heat, and A/C controls.
[2020-07-01 11:30] VITALS: BP 157/84
[2020-07-01 12:05] VITALS: BP 144/78
--- NOTE | 2020-07-01 12:10 | NUR ---
Dr Donovan notified of pt admission, complaints of piercing, burning abdominal pain located within 6 inches of umbilicus, and vaginal discharge. Informed of normal urine dipstick, BP's. vaginal exam, normal vagina discharge, reactive fetus with some uterine irritability. Plans to discharge and follow up with Dr Day on 07/03. 1233 Verbalized understanding of discharge information. Pt states she has never been this long before - water has spontaneously ruptured early before. To exit ambulatory.
[2020-07-01 12:20] VITALS: BP 157/84
[2020-07-01 12:35] VITALS: BP 144/78
--- NOTE | 2020-07-02 08:45 | Physician Query-Final Dx ---
JAY BAHENA 07/02/20 0845: Clinic Account Progress/Dx Physician Query: Please give diagnosis Please include # weeks gestation Date of Service Jul 01, 2020 at 11:03 ORACIO BERNARD DO 07/02/20 1504: Clinic Account Progress/Dx DIAGNOSIS: Diagnosis 36 week gestation periumbilical pain obesity history of labor JAY BAHENA Jul 02, 2020 08:45 ORACIO BERNARD DO Jul 02, 2020 15:04
== END 2020-07-01 12:35 ==
LOC: LDRP 11:03 → WSo 11:03
PROVIDERS: ATTEND Obstetrics & Gynecology
DX: O26.893 Other specified pregnancy related conditions, third trimester (principal); Z3A.36 36 weeks gestation of pregnancy
CPT/HCPCS: 99213

== ENCOUNTER 2020-07-06 12:25 | Outpatient (CLI) | payer BC, MEDICAID ==
[~2020-07-06] VITALS: Ht 162.6 cm; Wt 130.8 kg
[2020-07-06 12:30] VITALS: BP 143/87
--- NOTE | 2020-07-06 12:30 | NUR ---
TASH GENAO presented to unit via ambulation from ED with c/o ctx's. Pt. weighed, gowned, voided, and to bed. EFHM and TOCO applied, VS taken. Pt. oriented to bed controls, call light, TV, heat, and A/C controls.
--- NOTE | 2020-07-06 12:51 | NUR ---
3-3.5cm, 60%, ballotable. reports ctx's since 0700 this a.m. denies vaginal bleeding or leaking fluid.+FM.
[2020-07-06 13:05] LABS: BILIRUBIN,URINE NEGATIVE (NEGATIVE); CLARITY,URINE CLEAR; COLOR,URINE YELLOW; GLUCOSE, URINE (UA) NEGATIVE (NEGATIVE); KETONES,URINE NEGATIVE (NEGATIVE); LEUKOCYTE ESTERASE ,URINE TRACE (NEGATIVE); NITRITE,URINE NEGATIVE (NEGATIVE); PH,URINE 6.5 (5-9); PROTEIN,URINE NEGATIVE (NEGATIVE)
[2020-07-06 13:13] LABS: BACTERIA,URINE TRACE /HPF; RBC,URINE RARE /HPF; WBC,URINE RARE /HPF
--- NOTE | 2020-07-06 13:47 | NUR ---
was called r/t pt's admission c/o's. dismissal orders received.
--- NOTE | 2020-07-06 13:57 | NUR ---
dismissal instructions given, verbalizes understanding. reviewed sx's to RTC. signature page signed, placed on chart.
--- NOTE | 2020-07-06 16:05 | NUR ---
pt ambulated to private vehicle with no sx's of distress noted.
--- NOTE | 2020-07-09 11:19 | Physician Query-Final Dx ---
JAY BAHENA 07/09/20 1119: Clinic Account Progress/Dx Physician Query: Please give diagnosis Please include # weeks gestation Date of Service Jul 06, 2020 at 12:25 SABINO LOREDO DO 07/10/20 1032: Clinic Account Progress/Dx DIAGNOSIS: Diagnosis 37 week IUP Pelvic pressure and irregular contractions JAY BAHENA Jul 09, 2020 11:19 SABINO LOREDO DO Jul 10, 2020 10:32
== END 2020-07-06 16:05 | disposition home or self-care (01) ==
LOC: LDRP 12:25 → WSo 12:25
PROVIDERS: ATTEND Obstetrics & Gynecology
DX: O62.9 Abnormality of forces of labor, unspecified (principal); Z3A.36 36 weeks gestation of pregnancy
CPT/HCPCS: 81000; 87088; 99213

== ENCOUNTER 2020-07-06 16:34 | Inpatient (IN) | payer BC, MEDICAID ==
[2020-07-06] VITALS (7 sets, daily range): BP systolic 148–172; BP diastolic 77–91
[~2020-07-06] VITALS: Ht 162.6 cm; Wt 130.8 kg
--- NOTE | 2020-07-06 16:43 | NUR ---
TASH GENAO presented to unit via ambulation from ED with c/o contractions and rectal pressure. Pt. weighed, gowned, voided, and to bed. EFHM and TOCO applied, VS taken. Pt. oriented to bed controls, call light, TV, heat, and A/C controls. Addendum: 07/06/20 at 1754 by WHITNEY JAVED RN pt refused w/c from ED. unaccompanied on admission, carrying 2 large suitcases upon arrival. anxious, breathing with ctx's. reports ctx's intensity increased since dismissal @ 1605.
--- NOTE | 2020-07-06 16:58 | NUR ---
SVE 4CM, 70%, ballotable. reports cont ctx's every 2 mins since dismissed from WS @ 9209. reports pressure in rectum with urge to have BM. +diarrhea this a.m.
--- NOTE | 2020-07-06 17:24 | NUR ---
was called r/t admission c/o's, SVE , monitoring tracing and VS. will monitor pt till 1829, SVE then call MD with update prior to shift change.
--- NOTE | 2020-07-06 17:30 | NUR ---
ice water served. POC reviewed with pt. breathing with ctx's.
--- NOTE | 2020-07-06 18:23 | NUR ---
repositioned pt to Lt.tilt. BP rechecked- pt reports headache "better". denies headache on admission
--- NOTE | 2020-07-06 18:42 | NUR ---
SVE 4-4.5cm, anterior, soft, 70%, -2
--- NOTE | 2020-07-06 18:46 | NUR ---
was called with SVE, monitor tracing and vs. admission orders received.
[2020-07-06] MEDS ORDERED: D5 LR IV SOLUTION 1,000 ML IV ONE (19:07)
--- NOTE | 2020-07-06 19:15 | NUR ---
report given to ISAC Galan.
[2020-07-06] MEDS: D5 LR IV SOLUTION 1,000 ML IV SCH (19:30)
[2020-07-06 19:47] LABS: BASOPHILS % (AUTO) 0 % (0-10); EOSINOPHILS % (AUTO) 0 % (0-10); HEMATOCRIT 41 % (35-52); HEMOGLOBIN 13.5 g/dL (11.5-16.0); LYMPHOCYTES # (AUTO) 1.5 10^3/uL (1.0-4.0); LYMPHOCYTES % (AUTO) 7 % (12-44); MEAN CORPUSCULAR HEMOGLOBIN 29 pg (25-34); MEAN CORPUSCULAR HGB CONC 33 g/dL (32-36); MEAN CORPUSCULAR VOLUME 86 fL (80-99); MEAN PLATELET VOLUME 12.2 fL (9.0-12.2); MONOCYTES # (AUTO) 1.1 10^3/uL (0.0-1.0); MONOCYTES % (AUTO) 6 % (0-12); NEUTROPHILS % (AUTO) 86 % (42-75); PLATELET COUNT 185 10^3/uL (130-400); WHITE BLOOD COUNT 19.9 10^3/uL (4.3-11.0)
[2020-07-06 20:05] LABS: ALANINE AMINOTRANSFERASE 14 U/L (0-55); ALBUMIN 3.5 GM/DL (3.2-4.5); ALKALINE PHOSPHATASE 114 U/L (40-136); BILIRUBIN,TOTAL 0.4 MG/DL (0.1-1.0); BUN/CREATININE RATIO 8; CARBON DIOXIDE 20 MMOL/L (21-32); CHLORIDE 104 MMOL/L (98-107); CREATININE SERUM 0.62 MG/DL (0.60-1.30); GFR ESTIMATED > 60; GLUCOSE 107 MG/DL (70-105); POTASSIUM 3.5 MMOL/L (3.6-5.0); SODIUM 136 MMOL/L (135-145); TOTAL PROTEIN 6.9 GM/DL (6.4-8.2); URIC ACID 4.7 MG/DL (2.6-7.2)
[2020-07-06 20:18] LABS: LYMPHOCYTES % (MANUAL) 9 %; MONOCYTES % (MANUAL) 5 %; NEUTROPHILS % (MANUAL) 86 %; RBC MORPH NORMAL
[2020-07-06] MEDS ORDERED: fentaNYL 2 mcg/ml BUPIVA 0.125 100 ML ONE (23:43)
[2020-07-07] VITALS (48 sets, daily range): BP systolic 113–179; BP diastolic 56–112
[2020-07-07] MEDS ORDERED: BUPIVACAINE 0.25% 30 ML (SENSORCAINE) VIAL ONE (00:12)
[2020-07-07] MEDS ORDERED: fentaNYL INJECTION 100 MCG/2 ML AMP ONE (00:12)
[2020-07-07] MEDS ORDERED: LIDOCAINE PF 2% 5 ML (XYLOCAINE) VIAL ONE (00:12)
[2020-07-07] MEDS ORDERED: diphenhydrAMINE 50 MG/ML INJ (BENADRYL) IV PRN (01:00)
[2020-07-07] MEDS ORDERED: ONDANSETRON 4 MG/2 ML (SDV) Z0FRAN IV PRN (01:00)
[2020-07-07] MEDS ORDERED: LACTATED RINGERS 1,000 ML IV SCH (01:00)
[2020-07-07] MEDS ORDERED: NALOXONE 0.4 MG/ML 1 ML (NARCAN) VIAL IV PRN (01:00)
[2020-07-07] MEDS ORDERED: EPIDURAL (fentaNYL 2 MCG/ML BUPIVA 0.125%)100 ML BAG EPI PRN (01:00)
[2020-07-07] MEDS: ACETAMINOPHEN 500 MG TAB (TYLENOL) PO PRN ×2 (01:33→16:01)
[2020-07-07] MEDS: D5 LR IV SOLUTION 1,000 ML IV SCH ×2 (03:30→11:49)
--- NOTE | 2020-07-07 07:09 | History & Physical-OB ---
OB - Chief Complaint & HPI Date/Time Date of Admission: Date of Admission: Jul 06, 2020 at 18:46 Date seen by a Provider: Jul 07, 2020 Time Seen by a Provider: 07:07 Chief Complaint/History OB-Reason for Admission/Chief: Onset of Labor Hx : 4 Hx Para: 2 Gestational Age in Weeks: 37 Gestational Age in Days: 2 Admission Nurse Assessment Rev: Yes Allergies and Home Medications Allergies Coded Allergies: No Known Drug Allergies (Unverified , 01/22/14) Home Medications B12/Levomefolate Calcium/B-6 1 Each Tablet, 1 EACH PO DAILY, (Reported) B6/FA/B12/Co Q10/Herb No.225 1 Each Tablet, 1 EACH PO DAILY, (Reported) Folic Acid 20 Mg Capsule, 20 MG PO DAILY, (Reported) [place] 3,6,9 Combination No.7 92 Mg Tab.chew, 92 MG PO DAILY, (Reported) Vit/Fe Fumarate/Fa 1 Each Tablet, 1 EACH PO DAILY, (Reported) Patient Home Medication List Home Medication List Reviewed: Yes OB - History Hx of Present Care: Yes Ultrasounds: Normal mid trimester US Obstetrical Complications: Other (GDM undefined due to non-compliance) Medical Complications: Other (Obesity) Obstetrical History Hx : 4 Hx Para: 2 Hx Termination: No Hx Total # of Abortions (Spona: 1 Hx Multiple Gestation: No Hx Stillbirth: No Hx Complication: No Hx Induced Hypertens: No Hx Maternal Gestational Diabet: Yes Delivery History Hx Dystocia: No Hx Large For Gestational Age I: No Hx Small for Gestational Age I: No Hx Section: No Hx Vaginal Delivery Post C-Sec: No Hx Blood Disorders: Yes (Blood clots as juvenile) Adverse Rxn to Tranfusion: No Patient Past Medical History Benign tremor, lactose intolerance, obesity Social History/Family History HIV/AIDS: No Recent Infectious Disease Expo: No Sexually Transmitted Disease: No Alcohol Use: Denies Use Recreational Drug Use: No 2nd Hand Smoke Exposure: Yes Immunizations Hepatitis A: No Hepatitis B: No OB - Admission Exam Physical Exam Vitals: Vital Signs 07/07/20 07/07/20 00:45 06:30 Temp 37.8 Pulse 120 Resp 18 B/P (MAP) 146/80 (102) Pulse Ox 96 O2 Delivery Room Air HEENT: NCAT Heart: Rhythm Normal Lungs: Clear Abdomen: Gravid Extremities: Normal Reflexes: Normal Cervical Dilatation: 5cm Effacement: 75% Station: -1 Membranes: Intact Heart Rate: 130's Accelerations: Accelerations Present Decelerations: No Decelerations Short Term Variability: Present Lav Crewman Variability: Average (6-25) Contractions on Admission: 6-10 Minutes Apart Intensity: Mild Labs Laboratory Tests Test 07/06/20 19:20 07/06/20 19:30 07/06/20 21:50 Range/Units Urine Protein 44 H 6-12 MG/DL Urine Creatinine 58 30-125 MG/DL Urine Protein/Creatinine Ratio 0.76 White Blood Count 19.9 H 4.3-11.0 10^3/uL Red Blood Count 4.69 3.80-5.11 10^6/uL Hemoglobin 13.5 11.5-16.0 g/dL Hematocrit 41 35-52 % Mean Corpuscular Volume 86 80-99 fL Mean Corpuscular Hemoglobin 29 25-34 pg Mean Corpuscular Hemoglobin Concent 33 32-36 g/dL Red Cell Distribution Width 14.3 10.0-14.5 % Platelet Count 185 130-400 10^3/uL Mean Platelet Volume 12.2 9.0-12.2 fL Immature Granulocyte % (Auto) 1 % Neutrophils (%) (Auto) 86 H 42-75 % Lymphocytes (%) (Auto) 7 L 12-44 % Monocytes (%) (Auto) 6 0-12 % Eosinophils (%) (Auto) 0 0-10 % Basophils (%) (Auto) 0 0-10 % Neutrophils # (Auto) 17.0 H 1.8-7.8 10^3/uL Lymphocytes # (Auto) 1.5 1.0-4.0 10^3/uL Monocytes # (Auto) 1.1 H 0.0-1.0 10^3/uL Eosinophils # (Auto) 0.0 0.0-0.3 10^3/uL Basophils # (Auto) 0.0 0.0-0.1 10^3/uL Immature Granulocyte # (Auto) 0.2 H 0.0-0.1 10^3/uL Neutrophils % (Manual) 86 % Lymphocytes % (Manual) 9 % Monocytes % (Manual) 5 % Blood Morphology Comment NORMAL Sodium Level 136 135-145 MMOL/L Potassium Level 3.5 L 3.6-5.0 MMOL/L Chloride Level 104 98-107 MMOL/L Carbon Dioxide Level 20 L 21-32 MMOL/L Anion Gap 12 5-14 MMOL/L Blood Urea Nitrogen 5 L 7-18 MG/DL Creatinine 0.62 0.60-1.30 MG/DL Estimat Glomerular Filtration Rate > 60 BUN/Creatinine Ratio 8 Glucose Level 107 H 70-105 MG/DL Uric Acid 4.7 2.6-7.2 MG/DL Calcium Level 9.0 8.5-10.1 MG/DL Corrected Calcium 9.4 8.5-10.1 MG/DL Total Bilirubin 0.4 0.1-1.0 MG/DL Aspartate Amino Transf (AST/SGOT) 15 5-34 U/L Alanine Aminotransferase (ALT/SGPT) 14 0-55 U/L Alkaline Phosphatase 114 40-136 U/L Total Protein 6.9 6.4-8.2 GM/DL Albumin 3.5 3.2-4.5 GM/DL OB - Assessment/Plan/Diagnosis Assessment Assessment: active labor Admission Dx 35 yo @ 37 weeks Mild PreE Active labor GBS neg Admission Status: Inpatient Order (span 2 midnights) Reason for Inpatient Admission: Active labor at 37 weeks Plan Plan: Expectant Management SABINO LOREDO DO Jul 07, 2020 07:09
[2020-07-07] MEDS ORDERED: OXYTOCIN PRE-MIX DRIP 500 ML IV ONE (07:17)
--- NOTE | 2020-07-07 07:55 | NUR ---
Spontaneous vaginal delivery of placenta with cord attached. pitocin started at 999ml/hr as ordered by physician. fundal massage by dr han at this time. 0758 pt shivering and reports cold. pt respirations increased. 0802 epidural infusion stopped. 0803 vs obtained and noted. pt continues shivering. warm blankets x2 to pt for comfort. ff1/u with lt-mod rubra noted. 0805 sp02 monitor placed on pt. pt reports nausea, emesis bag given. 0810 ecg monitors placed on pt, noted respirations 30-35. pt encourgarged to take breaths in through nose and out through mouth. small amt of emesis. rn attempting manual blood pressure, unable to obtain due to pt shivering/shaking. 0815 dr han to bedside and reviewed with dr han, vs obtained. pt shivering continues along with increased respirations. ff1/u with lt -mod rubra noted 0818 new orders received from dr han who remains at pt bedside. bp noted, along with temporal and oral temp obtained. 0822 pt shivering has stopped and respirations have decreased to low 20's. pt reports feeling better. 0824 bp obatined. 0830 ff1/u with moderate rubra noted, no clots expressed. 0845 ff1/u with lt-mod rubra noted, no clots expressed.
[2020-07-07] MEDS ORDERED: OXYTOCIN PRE-MIX DRIP 500 ML IV SCH (08:15)
[2020-07-07] MEDS ORDERED: cefTRIAXone FOR IV USE 1,000 MG in WATER (STERILE) FOR INJECTION 10 ML IV NR (08:15)
[2020-07-07] MEDS ORDERED: KETOROLAC 30 MG/ML VIAL IVP ONE (08:15)
[2020-07-07] MEDS ORDERED: TETANUS,DIPTH,PERTUSS P/F (BOOSTRIX) 0.5 ML VIAL IM ONE (08:15)
[2020-07-07] MEDS ORDERED: DIBUCAINE (NUPERCAINAL) 1% OINT 30 GM TOP PRN (08:15)
[2020-07-07] MEDS ORDERED: MEASLES,MUMPS,RUBELLA 1 EA INJ SQ ONE (08:15)
[2020-07-07] MEDS ORDERED: WITCH HAZEL(TUCKS) 40 EA JAR TOP PRN (08:15)
[2020-07-07] MEDS ORDERED: BENZOCAINE/MENTHOL (DERMOPLAST) 60 ML CAN TP PRN (08:15)
[2020-07-07] MEDS ORDERED: ACETAMINOPHEN 500 MG TAB (TYLENOL) PO NR (08:15)
[2020-07-07] MEDS ORDERED: HYDROcodone/APAP 5 MG/325 MG (LORTAB) TAB PO PRN (08:15)
[2020-07-07] MEDS ORDERED: KETOROLAC 30 MG/ML VIAL ONE (08:19)
--- NOTE | 2020-07-07 08:21 | OB Labor & Delivery Record ---
L&D History Date of Service Date of Service: Jul 07, 2020 History Gestational Age in Weeks: 37 Hx : 4 Hx Para: 2 Complications Events: Gestational Diabetes (undefined due to noncompliance), Routine care Operative Indications (Cesarea: N/A-Vaginal Delivery Intrapartal Events: None L&D Stage1 Stage One Onset of Labor - Date: Jul 07, 2020 Monitors and Tracing Monitor Mode: External Heart Rate: 140 Monitor Accelerations: Uniform Monitor Decelerations: None Station: -2 Wildlife Photographer Variability: Average (6-10) Short Term Variability: Present Presentation: Vertex Vital Signs VS - Last 72 Hours, by Label 07/06/20 07/06/20 07/06/20 07/06/20 16:45 16:45 16:55 17:30 Temp 37.7 37.7 37.2 37.8 Pulse 125 125 125 117 Resp 20 20 20 20 B/P (MAP) 172/91 (118) 169/91 (117) Pulse Ox 96 96 96 O2 Delivery Room Air Room Air Room Air Room Air 07/06/20 07/06/20 07/06/20 07/06/20 18:00 19:35 20:00 21:00 Temp 37.4 Pulse 115 106 112 114 Resp 20 18 18 18 B/P (MAP) 167/90 (115) 161/88 (112) 159/85 (109) Pulse Ox 96 96 O2 Delivery Room Air Room Air Room Air Room Air 07/06/20 07/06/20 07/07/20 07/07/20 22:00 23:00 00:00 00:45 Temp 37.8 Pulse 116 120 117 121 Resp 18 18 18 18 B/P (MAP) 171/80 (110) Pulse Ox 97 97 98 97 O2 Delivery Room Air Room Air Room Air Room Air 07/07/20 07/07/20 07/07/20 07/07/20 00:46 00:49 00:52 00:55 Pulse 131 133 129 129 Resp 18 18 18 18 B/P (MAP) 149/71 (97) 139/59 (85) 141/64 (89) 140/63 (88) Pulse Ox 97 96 97 O2 Delivery Room Air Room Air Room Air Room Air 07/07/20 07/07/20 07/07/20 07/07/20 00:58 01:00 01:05 01:10 Pulse 126 122 118 121 Resp 18 18 18 18 B/P (MAP) 140/64 (89) 147/67 (93) 139/65 (89) 134/61 (85) Pulse Ox 96 94 O2 Delivery Room Air Room Air Room Air Room Air 07/07/20 07/07/20 07/07/20 07/07/20 01:15 01:30 01:45 02:00 Pulse 121 121 117 112 Resp 18 18 18 18 B/P (MAP) 137/63 (87) 143/65 (91) 142/65 (90) 137/65 (89) Pulse Ox 96 96 95 95 O2 Delivery Room Air Room Air Room Air Room Air 07/07/20 07/07/20 07/07/20 07/07/20 02:15 02:30 02:45 03:00 Pulse 112 111 112 108 Resp 18 18 18 18 B/P (MAP) 133/65 (87) 134/77 (96) 140/73 (95) 135/71 (92) Pulse Ox 96 96 93 93 O2 Delivery Room Air Room Air Room Air Room Air 07/07/20 07/07/20 07/07/20 07/07/20 03:15 03:30 03:45 04:00 Pulse 106 106 107 105 Resp 18 18 18 18 B/P (MAP) 134/72 (92) 134/72 (92) 132/64 (86) 134/69 (90) Pulse Ox 91 91 94 96 O2 Delivery Room Air Room Air Room Air Room Air 07/07/20 07/07/20 07/07/20 07/07/20 04:15 04:30 04:45 05:00 Pulse 104 106 107 104 Resp 18 18 18 18 B/P (MAP) 135/72 (93) 140/71 (94) 148/82 (104) 141/77 (98) Pulse Ox 98 95 92 92 O2 Delivery Room Air Room Air Room Air Room Air 07/07/20 07/07/20 07/07/20 07/07/20 05:15 05:30 05:45 06:00 Pulse 105 107 110 110 Resp 18 18 18 18 B/P (MAP) 142/79 (100) 131/74 (93) 143/75 (97) 143/84 (103) Pulse Ox 96 98 95 95 O2 Delivery Room Air Room Air Room Air Room Air 07/07/20 07/07/20 07/07/20 07/07/20 06:15 06:30 06:45 07:00 Pulse 118 120 112 113 Resp 18 18 18 18 B/P (MAP) 156/85 (108) 146/80 (102) 155/80 (105) 144/82 (102) Pulse Ox 97 96 94 94 O2 Delivery Room Air Room Air Room Air Room Air Rupture of Membranes Spontaneous Ruture of Membrane: No Amniotic Membrane Rupture Time: 07:00 Amniotic Membrane Fluid Desc.: Clear Vaginal Bleeding Description: Normal Show Induction/Anesthesia Epidural Cath Placement - Time: 0036 Progress/Notes Patient presented in active labor last night, no augmentation used other than AROM this AM when the patient was complete and 0 station. L&D Stage2 Stage Two Stage II Date: Jul 07, 2020 Monitors and Tracing Monitor Mode: External Heart Rate: 140 Monitor Decelerations: None Shelter Variability: Average (6-10) Short Term Variability: Present Position: Right Occiput Anterior Presentation: Vertex Cord Descript/Complications Cord Vessel Description: 3 Vessels Delivery Type Delivery Method: Spontaneous Vaginal Anterior Shoulder: Left Episiotomy/Perineal Laceration Laceraction(s)/Extensions: No Shoulder Dystocia Note Shoulder Dystocia Start Time of Delivery of HEAD: 07:48 Time shoulder dystocia called: 07:48 HOB in lowered position: Yes Time of delivery of BODY: 07:49 Positional Maneuvers Suprapubic: Left total 40 seconds Rotational Maneuvers Burns II Delivery Approach Modified burns used to direct anterior left shoulder in oblique plane to allow for delivery anteriorly Condition of Delivery 1 minute Comment: 6 5 minute Comment: 8 Condition of Condition of Infant: Living Exam: No Observed Abnormalities Resuscitation Resuscitation: Bag and Mask (CPAP) L&D Stage3 Stage Three Stage III Date: Jul 07, 2020 Pictocin Pitocin Administration Comment: 30 mu wide open at delivery of placenta Placenta Delivery Placenta Delivery: Spontaneous Delivery Summary Summary Estimated blood loss (mL): 350 350 Attending at delivery: Sabino Loredo DO Condition of Delivery Examined: Cervix Examined, Uterus Explored Post Hemorrhage: No Intervention Required Patient acquired acute fever of 102.6 sublingual after delivery, became tachycardic, and tachhypnic. 1000 mg tylenol, 30 mg toradol ordered. 200 mg labetalol given for rate control, and started on 1 gm rocephin and 500 mg flagyl. Condition of Mother stable Condition of (s) stable SABINO LOREDO DO Jul 07, 2020 08:21
[2020-07-07] MEDS ORDERED: metroNIDAZOLE 500MG/100ML IVPB 100 ML IV SCH (09:00)
[2020-07-07] MEDS ORDERED: IBUPROFEN 600 MG (MOTRIN) TAB PO SCH (09:00)
[2020-07-07] MEDS: LABETALOL 200 MG (NORMODYNE) TAB PO SCH ×2 (09:09→21:00)
--- NOTE | 2020-07-07 09:15 | NUR ---
ff1/u with mod rubra noted.
--- NOTE | 2020-07-07 09:45 | NUR ---
RN called to pt room. IV in rt hand dislodged on bed, pt states "it fell out."
--- NOTE | 2020-07-07 10:00 | NUR ---
breakfast tray to bedside.
--- NOTE | 2020-07-07 10:45 | NUR ---
Assisted up to bathroom, pt reports scant void. pericare and pad changed. underwear on. pt denies gown- continues to sweat. To wheelchair at this time for transfer to pp room. plan of care reviewed with pt.
--- NOTE | 2020-07-07 10:59 | Anesthesia-Regional Post-Op ---
Regional Patient Condition Mental Status: Alert, Oriented x3 Circulation: Same as Pre-Op Headache: Absent Sensation: Full Recovery Motor Block: Absent Post Op Complications Complications None Follow Up Care/Instructions Patient Instructions None needed. Anesthesia/Patient Condition Patient is doing well, no complaints, stable vital signs, no apparent adverse anesthesia problems. No complications reported per nursing. VIV DE LA ROSA CRNA Jul 07, 2020 10:59
--- NOTE | 2020-07-07 11:10 | NUR ---
Transferred to room 312. oriented to room, call light and surroundings. bed controls and call light with in reach. pt denies needs. pt belongings to room per this rn.
--- NOTE | 2020-07-07 11:15 | NUR ---
sandwich tray to bedside per pt request
[2020-07-07] MEDS: CATHETER FLUSH 10 ML SYR IV SCH ×3 (11:45→14:41)
[2020-07-07] MEDS: FERROUS SULF 325 MG (IRON) TAB PO SCH ×2 (11:48→11:58)
[2020-07-07] MEDS: DOCUSATE SODIUM 100 MG (COLACE) CAP PO SCH ×2 (11:58→22:25)
--- NOTE | 2020-07-07 11:59 | NUR ---
fresh ice water to bedside table.
--- NOTE | 2020-07-07 13:54 | NUR ---
Rn called to pt room. pt standing at side of bed. pt reports "gush of blood". noted approx 10-20ml blood on floor, no active bleeding noted. pt to bathroom to clean up.
[2020-07-07] MEDS ORDERED: CATHETER FLUSH 10 ML SYR IV SCH (14:00)
--- NOTE | 2020-07-07 14:30 | NUR ---
ffu/1 with lt rubra noted.
[2020-07-07] MEDS: IBUPROFEN 600 MG (MOTRIN) TAB PO SCH ×2 (16:02→22:26)
--- NOTE | 2020-07-07 19:35 | NUR ---
INITIAL SHIFT ASSESSMENT DONE. PT REPORTS IV FALLING OUT. NOTED IV TO BE HANGING BY TAPE ON HAND. IV SITE WITH HEMOSTASIS NOTED.
--- NOTE | 2020-07-07 19:50 | NUR ---
DR LOREDO ALERTED OF PT IV COMING OUT AND VS. ORDER TO LEAVE IV OUT AND D/C IV MEDS. WILL HOLD LABETALOL AT THIS TIME. WILL CONT TO MONITOR BP AND TEMPS.
--- NOTE | 2020-07-07 22:25 | NUR ---
MOTRIN AND COLACE ADMINISTERED. PT UP TO BATHROOM. PT REPORTS BIG GUSH OF BLOOD UPON STANDING UP. PT CLEANED UP ON HER OWN. PADS INSPECTED WITH LIGHT LOCHIA NOTED. SUSPECTED LEAKING OUT SIDES OF BRIEF.
--- NOTE | 2020-07-08 00:10 | NUR ---
PT CONT TO PROVIDE ALL CARES FOR . REPORTS BEING TIRED. ENCOURAGED TO SLEEP WHEN INFANT SLEEPS. PT DENIES ANY FURTHER NEEDS AT THIS TIME.
[2020-07-08] MEDS: IBUPROFEN 600 MG (MOTRIN) TAB PO SCH ×4 (03:54→21:37)
[2020-07-08 03:55] VITALS: BP 134/73
--- NOTE | 2020-07-08 03:55 | NUR ---
VSS. PT REPORTS CRAMPING HAS BEEN FOR LONG PERIODS. MOTRIN GIVEN. PT INSTRUCTED TO CALL IF PAIN NOT IMPROVED WITHIN 1 HOUR AND ALTERNATE PAIN MEDS WILL BE ADMINISTERED.
[2020-07-08 06:29] LABS: BASOPHILS % (AUTO) 0 % (0-10); EOSINOPHILS # (AUTO) 0.1 10^3/uL (0.0-0.3); EOSINOPHILS % (AUTO) 1 % (0-10); HEMATOCRIT 36 % (35-52); HEMOGLOBIN 11.9 g/dL (11.5-16.0); LYMPHOCYTES # (AUTO) 1.5 10^3/uL (1.0-4.0); LYMPHOCYTES % (AUTO) 10 % (12-44); MEAN CORPUSCULAR HEMOGLOBIN 29 pg (25-34); MEAN CORPUSCULAR HGB CONC 33 g/dL (32-36); MEAN CORPUSCULAR VOLUME 89 fL (80-99); MEAN PLATELET VOLUME 11.9 fL (9.0-12.2); MONOCYTES # (AUTO) 0.7 10^3/uL (0.0-1.0); MONOCYTES % (AUTO) 5 % (0-12); NEUTROPHILS # (AUTO) 12.7 10^3/uL (1.8-7.8); NEUTROPHILS % (AUTO) 83 % (42-75); PLATELET COUNT 131 10^3/uL (130-400); WHITE BLOOD COUNT 15.3 10^3/uL (4.3-11.0)
[2020-07-08] MEDS ORDERED: PRENATAL VITAMIN 1 EA TAB PO SCH (07:00)
[2020-07-08 07:45] VITALS: BP 149/102
[2020-07-08] MEDS: FERROUS SULF 325 MG (IRON) TAB PO SCH (07:50)
[2020-07-08] MEDS: LABETALOL 200 MG (NORMODYNE) TAB PO SCH ×2 (07:50→21:37)
[2020-07-08] MEDS: DOCUSATE SODIUM 100 MG (COLACE) CAP PO SCH ×2 (07:50→21:37)
--- NOTE | 2020-07-08 09:55 | Postpartum Progress Note ---
Note Note Day # 1 Subjective: Patient is without complaints. Ambulating, voiding. Tolerating a regular diet without nausea or vomiting. Normal lochia. Pain is well controlled with oral pain medications. Objective: Physical Exam: General - Alert and oriented, no apparent distress Abdomen - Soft, appropriately tender to palpation, non-distended, fundus firm at umbilicus Extremities - no edema, negative Matthew's bilaterally Assessment: PPD 1 NVD Mild PreE BMI 49.5 Plan: Routine care. Encourage breast feeding. Encourage ambulation. Ferrous sulfate supplementation. Plan for discharge today pending bp control Vitals - Labs Vital Signs - I&O Vital Signs Date Time Temp Pulse Resp B/P (MAP) Pulse Ox O2 Delivery O2 Flow Rate FiO2 07/08/20 07:45 36.1 87 20 149/102 (118) 98 Room Air 07/08/20 03:55 36.2 86 18 134/73 (93) 98 Room Air 07/07/20 19:35 36.1 83 18 122/73 (89) 98 Room Air 07/07/20 16:00 36.0 81 20 113/69 (84) 100 Room Air 07/07/20 11:00 36.4 110 24 124/65 (84) Room Air 07/07/20 10:00 36.4 121 24 124/65 (84) 95 Room Air 07/07/20 10:00 36.4 07/07/20 10:00 36.4 I & O 07/08/20 07:00 Intake Total 1010 ml Balance 1010 ml Labs Laboratory Tests 07/08/20 06:20: White Blood Count 15.3H, Red Blood Count 4.10, Hemoglobin 11.9, Hematocrit 36, Mean Corpuscular Volume 89, Mean Corpuscular Hemoglobin 29, Mean Corpuscular Hemoglobin Concent 33, Red Cell Distribution Width 14.9H, Platelet Count 131, Mean Platelet Volume 11.9, Immature Granulocyte % (Auto) 1, Neutrophils (%) (Auto) 83H, Lymphocytes (%) (Auto) 10L, Monocytes (%) (Auto) 5, Eosinophils (%) (Auto) 1, Basophils (%) (Auto) 0, Neutrophils # (Auto) 12.7H, Lymphocytes # (Auto) 1.5, Monocytes # (Auto) 0.7, Eosinophils # (Auto) 0.1, Basophils # (Auto) 0.0, Immature Granulocyte # (Auto) 0.2H SABINO LOREDO DO Jul 08, 2020 09:55
[2020-07-08] MEDS ORDERED: FERR325T18 PO ×2 (09:56)
[2020-07-08] MEDS ORDERED: ACHD5005 PO ×2 (09:56)
[2020-07-08] MEDS ORDERED: IBUP-844 PO ×2 (09:56)
[2020-07-08] MEDS ORDERED: LABE200T7 PO ×2 (09:56)
[2020-07-08] MEDS ORDERED: DCS100C PO ×2 (09:56)
--- NOTE | 2020-07-08 09:57 | Discharge Inst-Women's Service ---
Discharge Inst-Women's Serv Depart Medication/Instructions New, Converted or Re-Newed RX: RX on Chart Final Diagnosis PPD 1 NVD Mild PreE Problems Reviewed?: Yes Consults/Follow Up Additional Follow Up: Yes Orders/Referrals Dr. Loredo in 6 weeks Activity Activity: Activity as Tolerated Driving Instructions: No Driving for 1 Week NO SMOKING: NO SMOKING Nothing Inside Vagina: No Douching, No [place], No Tampons Diet Discharge Diet: No Restrictions Symptoms to Report to : Bleeding Excessive, Pain Increased, Fever Over 101 Degrees F, Vaginal Bleeding Increase, Questions/Concerns For Any Problems or Questions: Contact Your Physician SABINO LOREDO DO Jul 08, 2020 09:57
[2020-07-08 12:58] VITALS: BP 130/84
--- NOTE | 2020-07-08 14:00 | NUR ---
Discharge instructions explained, signed and copy to patient. pt verbalized understanding of instructions and denied questions. prescriptions given. discussed with pt that scripts will need to be filled by if infant does not get discharged today. pt verbalized understanding.
[2020-07-08 20:00] VITALS: BP 142/89
--- NOTE | 2020-07-08 21:30 | NUR ---
Shift assessment complete. VSS. Resting with eyes closed, denies complaints. Holding infant.
--- NOTE | 2020-07-08 23:59 | NUR ---
Patient discharged to [facility] status.
== END 2020-07-08 23:59 | disposition home or self-care (01) | DRG 807 ==
LOC: WSo 16:34 → LDRP 16:35 → WSo 18:46 → LDRP 07-07 11:40
PROVIDERS: ADMIT Obstetrics & Gynecology; ATTEND Obstetrics & Gynecology
PROC: 10E0XZZ Delivery of Products of Conception, External Approach (ICD-10-PCS; principal; 2020-07-07)
PROC: 10907ZC Drainage of Amniotic Fluid, Therapeutic from Products of Conception, Via Natural or Artificial Opening (ICD-10-PCS; 2020-07-07)
DX: O14.04 Mild to moderate pre-eclampsia, complicating childbirth (principal); Z37.0 Single live birth; Z3A.37 37 weeks gestation of pregnancy; O24.429 Gestational diabetes mellitus in childbirth, unspecified control
CPT/HCPCS: 36415; 80053; 82570; 84156; 84550; 85007; 85025; 85027; 86850; 86900; 86901; 87635; 90715; 99212

== ENCOUNTER → 2020-11-05 | Outpatient (CLI) | payer BC, MEDICAID ==
[~2020-11-05] MED LIST changes: +ACHD5005 PO; +DCS100C PO; +FERR325T18 PO; +IBUP-844 PO; +LABE200T7 PO
== END ==
LOC: LAB 08:53
PROVIDERS: ATTEND Obstetrics & Gynecology
DX: N91.2 Amenorrhea, unspecified (principal)
CPT/HCPCS: 36415; 84702

== ENCOUNTER → 2021-03-26 | Outpatient (CLI) | payer BC, MEDICAID ==
[~2021-03-26] MED LIST changes: -DCS100C PO; +DOCU-239 PO
== END ==
LOC: CARD 09:00
PROVIDERS: ATTEND Internal Medicine Cardiovascular Disease
DX: R07.9 Chest pain, unspecified (principal)
CPT/HCPCS: 93306

== ENCOUNTER → 2021-05-12 | Outpatient (CLI) | payer BC, MEDICAID ==
--- NOTE | 2021-05-12 08:54 | Diagnostic Imaging Report ---
INDICATION: Right shoulder pain. TIME OF EXAM: 8:43 AM Internal and external rotation views of the right shoulder were obtained. The glenohumeral and acromioclavicular alignment are normal. Glenohumeral space is normal. No fracture or dislocation is seen. IMPRESSION: No acute bony abnormality is detected. Dictated by: Dictated on workstation # [id number]
== END ==
LOC: RAD 08:28
PROVIDERS: ATTEND Nurse Practitioner Family
DX: M25.511 Pain in right shoulder (principal)
CPT/HCPCS: 73030

== ENCOUNTER 2022-10-24 19:34 | Outpatient (CLI) | payer BC, MEDICAID ==
[~2022-10-24 19:34] MED LIST changes: +ACET-11 PO; -ACET1TAB43 PO; +LABE200T10 PO; -LABE200T7 PO
== END 2022-10-25 06:50 | disposition home or self-care (01) ==
LOC: SLEEP 19:34
PROVIDERS: ATTEND Nurse Practitioner Family
DX: G47.10 Hypersomnia, unspecified (principal); I10 Essential (primary) hypertension
CPT/HCPCS: 95811